=== PATIENT | male | born 1975 | race Caucasian/White ===

== ENCOUNTER 2018-04-20 09:36 | Emergency (ER) | payer OTHER ==
[2018-04-20] MEDS ORDERED: DEXAMETHASONE 10 MG/ML VIAL PO STA (09:55)
[2018-04-20] MEDS ORDERED: IPRATROPIUM/ALBUTEROL 3 ML NEB INH STA (09:55)
--- NOTE | 2018-04-20 09:58 | ED Physician Documentation ---
PD HPI CHEST PAIN - Stated complaint Stated Complaint: CHEST PAIN - Chief complaint Chief Complaint: General - History obtained from History obtained from: Patient - History of Present Illness Timing - onset: How many days ago (2) Timing - onset during: Rest Timing - duration: Days (2) Timing - details: Gradual onset, Still present Quality: Pressure, Aching, Sharp Location: Substernal, Left chest Improved by: Rest Worsened by: Inspiration, Movement, Palpation Associated symptoms: Shortness of air, Feeling faint / dizzy, General Weakness, Cough Similar symptoms before: Has not had sx before Recently seen: Not recently seen - Additional information Additional information: 43-year-old male with a prior history of asthma and otitis as a child has developed a cough and congestion and over the past 2 days he has developed substernal chest pain. He describes the pain as sharp stabbing and describes tenderness to his anterior chest. He states that it feels hard to get a full deep breath. There has been a smoke inversion over the past week which has now cleared. He has been producing phlegm and he has not looked at it. Review of Systems Constitutional: reports: Chills, Fatigue, Sweats. denies: Fever Eyes: denies: Decreased vision Ears: denies: Ear pain Nose: reports: Rhinorrhea / runny nose, Congestion Throat: denies: Sore throat Cardiac: reports: Chest pain / pressure. denies: Palpitations, Pedal edema, Calf pain Respiratory: reports: Dyspnea, Cough GI: denies: Abdominal Pain, Nausea, Vomiting : denies: Dysuria Skin: denies: Rash Musculoskeletal: denies: Neck pain, Back pain, Extremity pain Neurologic: denies: Generalized weakness, Focal weakness, Numbness PD PAST MEDICAL HISTORY - Past Medical History Past Medical History: Yes Cardiovascular: Hypertension Respiratory: None Endocrine/Autoimmune: None GI: None : None HEENT: None Psych: Depression, Anxiety, Panic attacks Musculoskeletal: Chronic back pain Derm: None - Past Surgical History Past Surgical History: Yes General: Appendectomy, Hiatal hernia repair - Present Medications Home Medications: Ambulatory Orders Medication Instructions Recorded Confirmed Lisinopril 20 mg PO DAILY 06/16/14 10/24/15 Metoprolol Tartrate 25 mg PO BID 07/10/14 10/24/15 ALPRAZolam [Xanax] 06/04/16 Albuterol Sulfate [Proair Hfa 2 puffs IH QID #1 hfa.aer.ad 06/04/16 Inhaler] Dexamethasone [Decadron] 4 mg PO DAILY #5 tablet 06/04/16 Ibuprofen [Motrin] 600 mg PO TID #15 tab 07/16/16 Albuterol Sulf [Ventolin Hfa 1 - 2 puffs INH Q4HR PRN #1 inhaler 04/20/18 Inhaler] Azithromycin [Zithromax] 250 mg PO DAILY #6 tablet 04/20/18 HYDROcod/ACETAM 5/325 [[place] 5/325] 1 - 2 ea PO Q6H PRN #15 tablet 04/20/18 Lisinopril 5 mg PO DAILY #20 tablet 04/20/18 predniSONE [Deltasone] 10 mg PO DAILY #26 tablet 04/20/18 - Allergies Allergies/Adverse Reactions: Allergies Allergy/AdvReac Type Severity Reaction Status Date / Time No Known Drug Allergies Allergy Verified 10/24/15 21:11 - Social History Does the pt smoke?: Yes Smoking Status: Current every day smoker Does the pt drink ETOH?: Yes Does the pt have substance abuse?: No - Immunizations Immunizations are current?: Yes - POLST Patient has POLST: No PD ED PE NORMAL - Vitals Vital signs reviewed: Yes - General General: Alert and oriented X 3, Well developed/nourished, Other (Ther patient is withdrawn and has a face of pain ) - HEENT HEENT: Atraumatic, PERRL, EOMI, Other (tympanoscelrosis is present bilaterally without acute inflamation noted. Dy mucous membranes ) - Neck Neck: Supple, no meningeal sign, No bony TTP - Cardiac Cardiac: No murmur, Other (tachy ) - Respiratory Respiratory: No respiratory distress, Other (Diminished breath sounds bilaterally with ? 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, No motor deficit, No sensory deficit, Normal speech Eye Opening: Spontaneous Motor: Obeys Commands Verbal: Oriented GCS Score: 15 - Psych Psych: Normal mood, Normal affect Results - Vitals Vitals: Vital Signs - 24 hr 04/20/18 04/20/18 04/20/18 09:41 09:55 10:52 Temperature 36.7 C Heart Rate 102 H 90 96 Respiratory 12 14 12 Rate Blood Pressure 172/105 H 165/96 H O2 Saturation 100 99 04/20/18 11:29 Temperature Heart Rate 91 Respiratory 18 Rate Blood Pressure 146/97 H O2 Saturation 99 Oxygen O2 Source Room air - EKG (time done) 0941 Rate: Rate (enter#) (106) Rhythm: Sinus tachycardia, LAE, ELLI Compare to prior EKG: Changed from prior EKG (SPT 06-04-18 rate has increased. ) Computer interpretation: Agree with computer - Labs Labs: Laboratory Tests 04/20/18 04/20/18 04/20/18 09:47 09:47 09:47 WBC 9.6 RBC 4.67 L Hgb 16.1 Hct 46.5 MCV 99.7 H MCH 34.5 H MCHC 34.6 RDW 13.6 Plt Count 203 MPV 8.5 Neut # (Auto) 5.7 Lymph # (Auto) 3.0 [place] # (Auto) 0.5 Eos # (Auto) 0.3 Baso # (Auto) 0.1 Absolute Nucleated RBC 0.00 Nucleated RBC % 0.0 Sodium 137 Potassium 3.8 Chloride 103 Carbon Dioxide 26 Anion Gap 8.0 BUN 21 H Creatinine 1.3 H Estimated GFR (MDRD) 60 L Glucose 191 H Calcium 9.4 Total Bilirubin 1.0 AST 22 ALT 17 Alkaline Phosphatase 75 Troponin I < 0.04 Total Protein 7.0 Albumin 4.2 Globulin 2.8 Albumin/Globulin Ratio 1.5 Lipase 38 - Rads (name of study) 2 veiw chest Radiology: Prelim report reviewed (Impression: No focal consolidation.), EMP read indepedently, See rad report PD MEDICAL DECISION MAKING - ED course Complexity details: reviewed old records, reviewed results, re-evaluated patient , considered differential, d/w patient, d/w family ED course: 43-year-old male with acute chest wall pain toward the end of the week with a week long smoke inversion. His chest x-ray is without evidence of infiltrate he is coughing up brown phlegm and he has some improvement in his pain with use of Toradol. He did not feel that he had much relief with the use of the DuoNeb treatment. The patient is asking for medication for his hypertension. He has been taking lisinopril 5 mg which he got from a doctor on his On his phone. - Sepsis Event Vital Signs: Vital Signs - 24 hr 04/20/18 04/20/18 04/20/18 09:41 09:55 10:52 Temperature 36.7 C Heart Rate 102 H 90 96 Respiratory 12 14 12 Rate Blood Pressure 172/105 H 165/96 H O2 Saturation 100 99 04/20/18 11:29 Temperature Heart Rate 91 Respiratory 18 Rate Blood Pressure 146/97 H O2 Saturation 99 Oxygen O2 Source Room air Departure - Departure Disposition: Home, Self Care Clinical Impression: Chest wall pain Asthmatic bronchitis Qualifiers: Asthma severity: mild Asthma persistence: intermittent Asthma complication type : with acute exacerbation Qualified Code(s): J45.21 - Mild intermittent asthma with (acute) exacerbation Hypertension Qualifiers: Hypertension type: unspecified Qualified Code(s): I10 - Essential (primary) hypertension Condition: Stable Instructions: ED Bronchitis Asthmatic, ED Chest Pain Costochondritis Follow-Up: [facility] [Provider Group] Prescriptions: Albuterol Sulf [Ventolin Hfa Inhaler] 1 - 2 puffs INH Q4HR PRN #1 inhaler PRN Reason: Shortness Of Air/Wheezing Azithromycin [Zithromax] 250 mg PO DAILY #6 tablet HYDROcod/ACETAM 5/325 [[place] 5/325] 1 - 2 ea PO Q6H PRN #15 tablet PRN Reason: Pain Lisinopril 5 mg PO DAILY #20 tablet predniSONE [Deltasone] 10 mg PO DAILY #26 tablet
[2018-04-20 10:00] LABS: BASOPHILS # (AUTO) 0.1 10^3/uL (0.0-0.1); BASOPHILS % (AUTO) 0.6 %; EOSINOPHILS # (AUTO) 0.3 10^3/uL (0.0-0.7); EOSINOPHILS % (AUTO) 3.4 %; HGB - HEMOGLOBIN 16.1 g/dL (14.0-18.0); LYMPHOCYTES % (AUTO) 31.5 %; MEAN CORPUSCULAR HEMOGLOBIN 34.5 pg (27.0-31.0); MEAN CORPUSCULAR HGB CONC 34.6 g/dL (32.0-36.0); MEAN CORPUSCULAR VOLUME 99.7 fL (80.0-94.0); MEAN PLATELET VOLUME 8.5 fL (7.4-11.4); MONOCYTES # (AUTO) 0.5 10^3/uL (0.0-1.0); MONOCYTES % (AUTO) 5.4 %; NEUTROPHILS # (AUTO) 5.7 10^3/uL (1.5-6.6); NEUTROPHILS % (AUTO) 59.1 %; PLT - PLATELET COUNT 203 10^3/uL (130-450); RED BLOOD COUNT 4.67 10^6/uL (4.70-6.10); RED CELL DISTRIBUTION WIDTH 13.6 % (12.0-15.0); WHITE BLOOD COUNT 9.6 x10^3/uL (4.8-10.8)
[2018-04-20 10:10] LABS: ALBUMIN 4.2 g/dL (3.2-5.5); ALBUMIN/GLOBULIN RATIO 1.5 (1.0-2.2); CALCIUM 9.4 mg/dL (8.5-10.3); CREATININE 1.3 mg/dL (0.6-1.2)
[2018-04-20] MEDS ORDERED: CHERRY SYRUP 10 ML UDC PO ONE (10:27)
--- NOTE | 2018-04-20 10:40 | XRAY Report ---
Reason: chest pain Procedure Date: 04/20/2018 Accession Number: [id number] / [id number] Procedure: XR - Chest 2 View X-Ray CPT Code: 97684 FULL RESULT: EXAM: CHEST RADIOGRAPHY EXAM DATE: 04/20/2018 10:06 AM. CLINICAL HISTORY: Chest radiograph dated 06/04/2016 COMPARISON: None. TECHNIQUE: 2 views. FINDINGS: Lungs/Pleura: No focal opacities evident. No pleural effusion. No pneumothorax. Normal volumes. Mediastinum: Heart and mediastinal contours are unremarkable. Other: None. IMPRESSION: No focal consolidation. RADIA
[2018-04-20] MEDS ORDERED: KETOROLAC 60 MG/2 ML VIAL IVP STA (11:19)
[2018-04-20 12:46] VITALS: BP 150/89
== END 2018-04-20 12:46 | disposition home or self-care (01) ==
LOC: ED 09:36
DX: J45.21 Mild intermittent asthma with (acute) exacerbation (principal); R07.89 Other chest pain; H74.03 Tympanosclerosis, bilateral; I10 Essential (primary) hypertension; F17.200 Nicotine dependence, unspecified, uncomplicated
CPT/HCPCS: 36415; 71046; 80053; 83690; 84484; 85025; 93005; 94640; 96374; 99283; 99284; A9270

== ENCOUNTER 2018-06-03 08:19 | Outpatient (CLI) | payer OTHER ==
[2018-06-03 12:23] LABS: ALBUMIN 3.9 g/dL (3.2-5.5); ALBUMIN/GLOBULIN RATIO 1.3 (1.0-2.2); ALKALINE PHOSPHATASE 86 IU/L (42-121); ALT ALANINE AMINOTRANSFERASE 21 IU/L (10-60); AST ASPARTATE AMINOTRANSFERASE 23 IU/L (10-42); BILIRUBIN,TOTAL 0.8 mg/dL (0.2-1.0); BUN - BLOOD UREA NITROGEN 14 mg/dL (6-20); CHOL/HDL RATIO 2.9 (<5.0); CHOLESTEROL 194 mg/dL; CREATININE 1.1 mg/dL (0.6-1.2); GFR - MDRD 73 (>89); HDL CHOLESTEROL 66 mg/dL; LDL CHOLESTEROL,CALCULATED 103 mg/dL; LDL/HDL RATIO 1.6 (<3.6); TOTAL PROTEIN 6.8 g/dL (6.7-8.2); VLDL CHOLESTEROL 25 mg/dL
[2018-06-03 12:52] LABS: CALCIUM 8.9 mg/dL (8.5-10.3); CARBON DIOXIDE - CO2 30 mmol/L (21-32); CHLORIDE 102 mmol/L (101-111); GLUCOSE 108 mg/dL (70-100); SODIUM 138 mmol/L (135-145)
== END 2018-06-03 08:20 | disposition home or self-care (01) ==
LOC: LAB.S 08:19
PROVIDERS: ATTEND Nurse Practitioner Family
DX: I10 Essential (primary) hypertension (principal); Z13.29 Encounter for screening for other suspected endocrine disorder
CPT/HCPCS: 36415; 80053; 80061; 83721; 84443

== ENCOUNTER 2018-11-08 19:12 | Emergency (ER) | payer OTHER ==
[2018-11-08 19:44] LABS: BASOPHILS % (AUTO) 0.3 %; EOSINOPHILS # (AUTO) 0.3 10^3/uL (0.0-0.7); EOSINOPHILS % (AUTO) 4.4 %; HGB - HEMOGLOBIN 16.2 g/dL (14.0-18.0); LYMPHOCYTES # (AUTO) 1.6 10^3/uL (1.5-3.5); LYMPHOCYTES % (AUTO) 24.8 %; MEAN CORPUSCULAR HEMOGLOBIN 33.6 pg (27.0-31.0); MEAN CORPUSCULAR HGB CONC 34.2 g/dL (32.0-36.0); MEAN CORPUSCULAR VOLUME 98.4 fL (80.0-94.0); MEAN PLATELET VOLUME 8.1 fL (7.4-11.4); MONOCYTES # (AUTO) 0.8 10^3/uL (0.0-1.0); MONOCYTES % (AUTO) 11.8 %; NEUTROPHILS # (AUTO) 3.8 10^3/uL (1.5-6.6); NEUTROPHILS % (AUTO) 58.7 %; PLT - PLATELET COUNT 193 10^3/uL (130-450); RED BLOOD COUNT 4.82 10^6/uL (4.70-6.10); RED CELL DISTRIBUTION WIDTH 13.8 % (12.0-15.0); WHITE BLOOD COUNT 6.6 x10^3/uL (4.8-10.8)
[2018-11-08 19:59] LABS: ALBUMIN 4.2 g/dL (3.2-5.5); ALBUMIN/GLOBULIN RATIO 1.4 (1.0-2.2); BILIRUBIN,TOTAL 0.5 mg/dL (0.2-1.0); CALCIUM 9.7 mg/dL (8.5-10.3); CREATININE 1.2 mg/dL (0.6-1.2); TOTAL PROTEIN 7.2 g/dL (6.7-8.2)
[2018-11-08] MEDS ORDERED: MAG HYDROX/AL HYDROX/SIMETH 30 ML UDC PO STA ×2 (21:47→22:24)
[2018-11-08] MEDS ORDERED: LIDOCAINE VISCOUS 2% 15 ML UDC MM STA ×2 (21:47→22:24)
[2018-11-08] MEDS ORDERED: SODIUM CHLORIDE 0.9% 1,000 ML IV ONE (21:48)
--- NOTE | 2018-11-08 21:52 | ED Physician Documentation ---
PD HPI ABD PAIN - Stated complaint Stated Complaint: AB PX/NAUSEA - Chief complaint Chief Complaint: Abd Pain - History obtained from History obtained from: Patient - History of Present Illness Timing - onset: Yesterday Timing - duration: Days (1) Timing - details: Gradual onset, Still present Quality: Cramping, Sharp, Pain Location: Epigastric, RLQ Improved by: Laying still Worsened by: Eating, Moving, Position, Palpation Associated symptoms: Nausea, Vomiting, Other (dark stool yesterday am BRBPR today) Similar symptoms before: Has not had sx before Recently seen: Not recently seen - Additional information Additional information: 43-year-old male with a prior history of reactive airway disease and gastritis has developed epigastric pain beginning yesterday afternoon and he developed vomiting in the evening. He did not look at the vomit does not know whether there is anything look like coffee grounds. He did have some bright red blood per rectum this morning and he has not had anything else out. He has had some dry heaves today. He has not been able to hold down fluids today. He does state that yesterday morning he had dark tarry stool. By review of the patient's record he has had similar presentation 2 years ago. He has had his appendix out. Review of Systems Constitutional: denies: Fever, Chills Eyes: denies: Decreased vision Ears: denies: Ear pain Nose: denies: Rhinorrhea / runny nose, Congestion Throat: denies: Sore throat Cardiac: denies: Chest pain / pressure, Palpitations Respiratory: denies: Dyspnea, Cough GI: reports: Abdominal Pain, Nausea, Vomiting, Bloody / black stool : reports: Dysuria. denies: Frequency Skin: denies: Rash Musculoskeletal: denies: Neck pain, Back pain, Extremity pain Neurologic: denies: Generalized weakness, Focal weakness, Numbness PD PAST MEDICAL HISTORY - Past Medical History Past Medical History: Yes Cardiovascular: Hypertension Respiratory: None Endocrine/Autoimmune: None GI: None : None HEENT: None Psych: Depression, Anxiety, Panic attacks Musculoskeletal: Chronic back pain Derm: None - Past Surgical History Past Surgical History: Yes General: Appendectomy, Hiatal hernia repair - Present Medications Home Medications: Ambulatory Orders Medication Instructions Recorded Confirmed Lisinopril 20 mg PO DAILY 06/16/14 10/24/15 Metoprolol Tartrate 25 mg PO BID 07/10/14 10/24/15 ALPRAZolam [Xanax] 06/04/16 Albuterol Sulfate [Proair Hfa 2 puffs IH QID #1 hfa.aer.ad 06/04/16 Inhaler] Dexamethasone [Decadron] 4 mg PO DAILY #5 tablet 06/04/16 Ibuprofen [Motrin] 600 mg PO TID #15 tab 07/16/16 Albuterol Sulf [Ventolin Hfa 1 - 2 puffs INH Q4HR PRN #1 inhaler 04/20/18 Inhaler] Azithromycin [Zithromax] 250 mg PO DAILY #6 tablet 04/20/18 HYDROcod/ACETAM 5/325 [[place] 5/325] 1 - 2 ea PO Q6H PRN #15 tablet 04/20/18 Lisinopril 5 mg PO DAILY #20 tablet 04/20/18 predniSONE [Deltasone] 10 mg PO DAILY #26 tablet 04/20/18 Sucralfate [Carafate] 1 gm PO ACHS #60 tablet 11/09/18 - Allergies Allergies/Adverse Reactions: Allergies Allergy/AdvReac Type Severity Reaction Status Date / Time No Known Drug Allergies Allergy Verified 11/08/18 19:19 - Social History Does the pt smoke?: Yes Smoking Status: Current every day smoker Does the pt drink ETOH?: Yes Does the pt have substance abuse?: No - Immunizations Immunizations are current?: Yes - POLST Patient has POLST: No PD ED PE NORMAL - Vitals Vital signs reviewed: Yes (tachy and hypertensive ) - General General: Alert and oriented X 3, Well developed/nourished, Other (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 No garding and no referred tenderness. ) - Rectal Rectal: Other (external hemmorrhoid does not appear inflamed. Stool is dark and guiac +. 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, No motor deficit, No sensory deficit, Normal speech Eye Opening: Spontaneous Motor: Obeys Commands Verbal: Oriented GCS Score: 15 - Psych Psych: Normal mood Results - Vitals Vitals: Vital Signs - 24 hr 11/08/18 11/08/18 11/08/18 19:17 20:30 22:12 Temperature 36.9 C 37.3 C Heart Rate 127 H 100 89 Respiratory 20 16 18 Rate Blood Pressure 165/96 H 128/79 125/76 O2 Saturation 99 97 100 11/09/18 00:00 Temperature Heart Rate 84 Respiratory 16 Rate Blood Pressure 118/70 O2 Saturation 98 Oxygen O2 Source Room air - Labs Labs: Laboratory Tests 11/08/18 11/08/18 11/08/18 19:31 19:31 22:05 WBC 6.6 RBC 4.82 Hgb 16.2 Hct 47.4 MCV 98.4 H MCH 33.6 H MCHC 34.2 RDW 13.8 Plt Count 193 MPV 8.1 Neut # (Auto) 3.8 Lymph # (Auto) 1.6 [place] # (Auto) 0.8 Eos # (Auto) 0.3 Baso # (Auto) 0.0 Absolute Nucleated RBC 0.00 Nucleated RBC % 0.0 Sodium 138 Potassium 3.6 Chloride 99 L Carbon Dioxide 27 Anion Gap 12.0 BUN 26 H Creatinine 1.2 Estimated GFR (MDRD) 66 L Glucose 115 H Calcium 9.7 Total Bilirubin 0.5 AST 24 ALT 20 Alkaline Phosphatase 80 Total Protein 7.2 Albumin 4.2 Globulin 3.0 Albumin/Globulin Ratio 1.4 Lipase 26 Urine Color YELLOW Urine Clarity CLEAR Urine pH 5.5 Ur Specific [place] >=1.030 H Urine Protein TRACE Urine Glucose (UA) NEGATIVE Urine Ketones NEGATIVE Urine Occult Blood NEGATIVE Urine Nitrite NEGATIVE Urine Bilirubin NEGATIVE Urine Urobilinogen 1 (NORMAL) Ur Leukocyte Esterase NEGATIVE Ur Microscopic Review NOT INDICATED Urine Culture Comments NOT INDICATED Urine Opiates Screen Ur Oxycodone Screen Urine Methadone Screen Ur Propoxyphene Screen Ur Barbiturates Screen Ur Tricyclics Screen Ur Phencyclidine Scrn Ur Amphetamine Screen U Methamphetamines Scrn U Benzodiazepines Scrn Urine Cocaine Screen U Cannabinoids Screen 11/08/18 23:59 WBC RBC Hgb Hct MCV MCH MCHC RDW Plt Count MPV Neut # (Auto) Lymph # (Auto) [place] # (Auto) Eos # (Auto) Baso # (Auto) Absolute Nucleated RBC Nucleated RBC % Sodium Potassium Chloride Carbon Dioxide Anion Gap BUN Creatinine Estimated GFR (MDRD) Glucose Calcium Total Bilirubin AST ALT Alkaline Phosphatase Total Protein Albumin Globulin Albumin/Globulin Ratio Lipase Urine Color Urine Clarity Urine pH Ur Specific [place] Urine Protein Urine Glucose (UA) Urine Ketones Urine Occult Blood Urine Nitrite Urine Bilirubin Urine Urobilinogen Ur Leukocyte Esterase Ur Microscopic Review Urine Culture Comments Urine Opiates Screen NEGATIVE Ur Oxycodone Screen NEGATIVE Urine Methadone Screen NEGATIVE Ur Propoxyphene Screen NEGATIVE Ur Barbiturates Screen NEGATIVE Ur Tricyclics Screen NEGATIVE Ur Phencyclidine Scrn NEGATIVE Ur Amphetamine Screen NEGATIVE U Methamphetamines Scrn NEGATIVE U Benzodiazepines Scrn NEGATIVE Urine Cocaine Screen NEGATIVE U Cannabinoids Screen NEGATIVE Procedures - IVC sono (time) 2144 Bedside IVC sono: IVC measures (cm) (1.09), Dehydration (est 1 liter deficit.) PD MEDICAL DECISION MAKING - ED course Complexity details: reviewed old records, reviewed results, re-evaluated patient, considered differential, d/w patient ED course: 43-year-old male with a history of prior gastritis has epigastric pain and blood in the GI tract he has normal blood counts and is dehydrated on interrogation of the inferior vena cava. 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 He has little effect of the GI cocktail and is given a second dose with more lidocaine and carafate and this has some temporary improvement. He requests medication for pain and is given IV tylenol. He is administered IV protonix as well. Departure - Departure Disposition: 01 Home, Self Care Clinical Impression: Gastritis Qualifiers: Gastritis type: unspecified gastritis Chronicity: acute Gastritis bleeding: with bleeding Qualified Code(s): K29.01 - Acute gastritis with bleeding Condition: Stable Instructions: ED PUD Vs Gastritis, ED Bleed UGI Stable Follow-Up: [facility] [Provider Group] Prescriptions: Sucralfate [Carafate] 1 gm PO ACHS #60 tablet Comments: Today it appears the abdominal pain you are having is related to gastritis or an inflammation of the stomach lining or ulcer. The recommendation is to take a medication to reduce the acid in your stomach on a regular basis for at least 2 weeks. Take either omeprazole or Pepcid AC available [id number], daily. In addition I have prescribed some Carafate which will need to take 1/2-hour before you eat and at bedtime on a regular basis for 10 days. This medicine will help heal. Avoid medications such as ibuprofen Aleve or aspirin and avoid alcohol as all of these medications can irritate the stomach lining.
[2018-11-08 22:20] LABS: BILIRUBIN,URINE NEGATIVE (NEGATIVE); GLUCOSE, URINE (UA) NEGATIVE (NEGATIVE); KETONES,URINE (UA) NEGATIVE (NEGATIVE); LEUKOCYTE ESTERASE, URINE NEGATIVE (NEGATIVE); NITRITE,URINE NEGATIVE (NEGATIVE); OCCULT BLOOD,URINE NEGATIVE (NEGATIVE); PH,URINE 5.5 PH (5.0-7.5); PROTEIN,URINE TRACE mg/dL (NEGATIVE); UROBILINOGEN,URINE 1 (NORMAL) E.U./dL (NORMAL)
[2018-11-08] MEDS ORDERED: SUCRALFATE 1 GM/10 ML UDC PO STA (22:24)
[2018-11-08 22:25] LABS: CLARITY,URINE CLEAR (CLEAR)
[2018-11-08] MEDS ORDERED: ACETAMINOPHEN 1,000 MG/100 ML 100 ML IV STA (23:31)
[2018-11-08] MEDS ORDERED: PANTOPRAZOLE 40 MG VIAL IVP STA (23:54)
[2018-11-09 00:02] LABS: MUDS CUTOFF CONCENTRATIONS CUTOFF CONC BELOW:
[2018-11-09 00:08] VITALS: BP 118/70
[2018-11-09 00:17] LABS: AMPHETAMINE SCREEN,URINE NEGATIVE (NEGATIVE); BENZODIAZEPINES SCREEN, URINE NEGATIVE (NEGATIVE); COCAINE SCREEN URINE NEGATIVE (NEGATIVE); METHADONE SCREEN, URINE NEGATIVE (NEGATIVE); METHAMPHETAMINES SCREEN, URINE NEGATIVE (NEGATIVE); OPIATE SCREEN, URINE NEGATIVE (NEGATIVE); OXYCODONE SCREEN, URINE NEGATIVE (NEGATIVE); PROPOXYPHENE SCREEN, URINE NEGATIVE (NEGATIVE); TRICYCLIC ANTIDEPRESSANT,URINE NEGATIVE (NEGATIVE)
== END 2018-11-09 00:45 | disposition home or self-care (01) ==
LOC: ED 19:12
DX: K29.01 Acute gastritis with bleeding (principal); E86.0 Dehydration; K64.4 Residual hemorrhoidal skin tags; I10 Essential (primary) hypertension; F17.200 Nicotine dependence, unspecified, uncomplicated
CPT/HCPCS: 36415; 80053; 80306; 81003; 83690; 85025; 96361; 96365; 96375; 99283; A9270; J0131; 81001; 87086

== ENCOUNTER 2019-10-07 13:12 | Emergency (ER) | payer OTHER ==
[2019-10-07 13:51] LABS: BASOPHILS % (AUTO) 0.5 %; EOSINOPHILS # (AUTO) 0.4 10^3/uL (0.0-0.7); HGB - HEMOGLOBIN 16.4 g/dL (14.0-18.0); LYMPHOCYTES # (AUTO) 3.5 10^3/uL (1.5-3.5); LYMPHOCYTES % (AUTO) 40.1 %; MEAN CORPUSCULAR HEMOGLOBIN 33.1 pg (27.0-31.0); MEAN CORPUSCULAR HGB CONC 33.3 g/dL (32.0-36.0); MEAN CORPUSCULAR VOLUME 99.4 fL (80.0-94.0); MEAN PLATELET VOLUME 9.7 fL (7.4-11.4); MONOCYTES # (AUTO) 0.6 10^3/uL (0.0-1.0); MONOCYTES % (AUTO) 6.8 %; NEUTROPHILS # (AUTO) 4.3 10^3/uL (1.5-6.6); NEUTROPHILS % (AUTO) 48.4 %; PLT - PLATELET COUNT 235 10^3/uL (130-450); RED BLOOD COUNT 4.95 10^6/uL (4.70-6.10); RED CELL DISTRIBUTION WIDTH 13.3 % (12.0-15.0); WHITE BLOOD COUNT 8.8 x10^3/uL (4.8-10.8)
[2019-10-07 14:05] LABS: ALBUMIN/GLOBULIN RATIO 1.5 (1.0-2.2); CREATININE 1.2 mg/dL (0.6-1.2); TOTAL PROTEIN 6.6 g/dL (6.7-8.2)
--- NOTE | 2019-10-07 17:02 | Ultrasound Report ---
Reason: R testicular pain Procedure Date: 10/07/2019 Accession Number: [id number] / [id number] Procedure: US - Testicle w/Doppler CPT Code: Final Report FULL RESULT: US: US SCROTUM WITH DOPPLER EXAM: SCROTAL ULTRASOUND WITH DOPPLER EXAM DATE: 10/07/2019 04:47 PM. CLINICAL HISTORY: Right testicular pain. COMPARISON: ABDOMEN/PELVIS W/ 10/24/2015 10:19 PM. TECHNIQUE: Real time sonographic grayscale and color/spectral Doppler images of the scrotum with static images were obtained. Spectral Doppler was used to completely evaluate the testicular vasculature for torsion. FINDINGS: Right: Testis: 4.6 x 2.2 x 2.9 cm. Normal size and echotexture. No mass. No calcification. Normal arterial and venous flow present. Epididymis: 1 x 1.3 x 2 cm. Increased vascularity at the right epididymal tail. Hydrocele: None. Varicocele: None. Left: Testis: 4.7 x 2.5 x 3 cm. Normal size and echotexture. No mass. No calcification. Normal arterial and venous flow present. Epididymis: 1 x 1.3 x 1.3 cm. Increased vascularity at the left epididymal tail. Hydrocele: None. Varicocele: None. IMPRESSION: No evidence for testicular torsion. Increased vascularity seen at the bilateral epididymal tails, could represent bilateral acute epididymitis versus this is normal for the patient. RADIA
[2019-10-07] MEDS ORDERED: KETOROLAC 30 MG/ML VIAL IVP STA (17:15)
[2019-10-07 17:30] LABS: BILIRUBIN,URINE NEGATIVE (NEGATIVE); GLUCOSE, URINE (UA) NEGATIVE (NEGATIVE); KETONES,URINE (UA) TRACE mg/dL (NEGATIVE); LEUKOCYTE ESTERASE, URINE NEGATIVE (NEGATIVE); NITRITE,URINE NEGATIVE (NEGATIVE); OCCULT BLOOD,URINE NEGATIVE (NEGATIVE); PROTEIN,URINE NEGATIVE (NEGATIVE); UROBILINOGEN,URINE 0.2 (NORMAL) E.U./dL (NORMAL)
[2019-10-07 17:31] LABS: CLARITY,URINE CLEAR (CLEAR)
[2019-10-07] MEDS ORDERED: ONDANSETRON 4 MG/2 ML VIAL IVP STA (18:15)
[2019-10-07] MEDS ORDERED: MORPHINE 2 MG/ML CARPUJECT IVP STA (18:15)
--- NOTE | 2019-10-07 18:18 | ED Physician Documentation ---
History of Present Illness - Stated complaint Stated Complaint: ABD PX - Chief complaint Chief Complaint: Abd Pain - History obtained from History obtained from: Patient - Additonal information Additional information: This is a 44-year-old man who presents with complaints that he thinks he has a hernia in the right groin it swollen tender and painful. His testicles are also swollen. He is had pain for 2 days. [place] some burning with urination yesterday but did not see any blood. He has not had a fever. He had a hernia repair in that right side with mesh about 15 years ago. He does feel pain radiate down the inner aspect of his right thigh whenever he is up and walking. Denies nausea vomiting or diarrhea. He has a little low back pain. The patient works in [employer] and does a lot of lifting. Review of Systems Constitutional: denies: Fever GI: reports: Abdominal Pain. denies: Nausea, Vomiting, Diarrhea : reports: Testicular pain. denies: Dysuria, Hematuria Skin: denies: Rash PD PAST MEDICAL HISTORY - Past Medical History Cardiovascular: Hypertension Respiratory: None Endocrine/Autoimmune: None GI: Ulcers : None HEENT: None Psych: Depression, Anxiety, Panic attacks Musculoskeletal: Chronic back pain Derm: None - Past Surgical History Past Surgical History: Yes General: Appendectomy, Hiatal hernia repair - Present Medications Home Medications: Ambulatory Orders Medication Instructions Recorded Confirmed lisinopriL [Lisinopril] 20 mg PO DAILY 06/16/14 10/24/15 Metoprolol Tartrate 25 mg PO BID 07/10/14 10/24/15 ALPRAZolam [Xanax] 06/04/16 Albuterol Sulfate [Proair Hfa 2 puffs IH QID #1 hfa.aer.ad 06/04/16 Inhaler] dexAMETHasone [Decadron] 4 mg PO DAILY #5 tablet 06/04/16 Ibuprofen [Motrin] 600 mg PO TID #15 tab 07/16/16 Albuterol Sulf [Ventolin Hfa 1 - 2 puffs INH Q4HR PRN #1 inhaler 04/20/18 Inhaler] Azithromycin [Zithromax] 250 mg PO DAILY #6 tablet 04/20/18 HYDROcod/ACETAM 5/325 [[place] 5/325] 1 - 2 ea PO Q6H PRN #15 tablet 04/20/18 lisinopriL [Lisinopril] 5 mg PO DAILY #20 tablet 04/20/18 predniSONE [Deltasone] 10 mg PO DAILY #26 tablet 04/20/18 Sucralfate [Carafate] 1 gm PO ACHS #60 tablet 11/09/18 Ciprofloxacin HCl [Cipro] 500 mg PO BID #20 tablet 10/07/19 - Allergies Allergies/Adverse Reactions: Allergies Allergy/AdvReac Type Severity Reaction Status Date / Time No Known Drug Allergies Allergy Verified 10/07/19 13:15 - Social History Does the pt smoke?: Yes Smoking Status: Current every day smoker Does the pt drink ETOH?: Yes Does the pt have substance abuse?: No - Immunizations Immunizations are current?: Yes - POLST Patient has POLST: No PD ED PE NORMAL - Vitals Vital signs reviewed: Yes - General General: Alert and oriented X 3, No acute distress, Well developed/nourished - HEENT HEENT: Atraumatic, Other (No scleral icterus) - Cardiac Cardiac: RRR, No murmur - Respiratory Respiratory: No respiratory distress - Abdomen Abdomen: Normal bowel sounds, Soft, Other (He has tenderness in the right inguinal region but no definite hernia. I do not feel any lymphadenopathy. He has a 2+ Femoral pulse.) - Male Male : Other (Testes are descended bilaterally. Right testicle feels a little boggy but the epididymis is tender. The left testicle feels firmer and is non- tender.) - Derm Derm: Normal color, Warm and dry, No rash - Neuro Neuro: Alert and oriented X 3, No motor deficit, No sensory deficit, Normal speech - Psych Psych: Normal mood, Normal affect Results - Vitals Vitals: Vital Signs - 24 hr 10/07/19 10/07/19 10/07/19 13:15 16:09 17:15 Temperature 36.5 C 37.1 C Heart Rate 100 87 87 Respiratory 16 18 16 Rate Blood Pressure 180/120 H 187/120 H 169/113 H O2 Saturation 98 99 100 10/07/19 10/07/19 18:21 19:02 Temperature Heart Rate 88 77 Respiratory 99 H 16 Rate Blood Pressure 150/92 H 152/109 H O2 Saturation 100 97 Oxygen O2 Source Room air - Labs Labs: Laboratory Tests 10/07/19 10/07/19 10/07/19 13:47 13:47 17:25 WBC 8.8 RBC 4.95 Hgb 16.4 Hct 49.2 MCV 99.4 H MCH 33.1 H MCHC 33.3 RDW 13.3 Plt Count 235 MPV 9.7 Neut # (Auto) 4.3 Lymph # (Auto) 3.5 [place] # (Auto) 0.6 Eos # (Auto) 0.4 Baso # (Auto) 0.0 Absolute Nucleated RBC 0.00 Nucleated RBC % 0.0 Sodium 136 Potassium 4.4 Chloride 99 L Carbon Dioxide 26 Anion Gap 11.0 BUN 10 Creatinine 1.2 Estimated GFR (MDRD) 65 L Glucose 85 Calcium 9.0 Total Bilirubin 1.0 AST 22 ALT 16 Alkaline Phosphatase 72 Total Protein 6.6 L Albumin 4.0 Globulin 2.6 Albumin/Globulin Ratio 1.5 Lipase 26 Urine Color YELLOW Urine Clarity CLEAR Urine pH 6.0 Ur Specific [place] <=1.005 Urine Protein NEGATIVE Urine Glucose (UA) NEGATIVE Urine Ketones TRACE Urine Occult Blood NEGATIVE Urine Nitrite NEGATIVE Urine Bilirubin NEGATIVE Urine Urobilinogen 0.2 (NORMAL) Ur Leukocyte Esterase NEGATIVE Ur Microscopic Review NOT INDICATED Urine Culture Comments NOT INDICATED PD MEDICAL DECISION MAKING - ED course Complexity details: reviewed results, d/w patient ED course: Patient had an IV started and he was given a liter of fluids and 30 of Toradol IV. White blood cell count is normal renal functions normal. Ultrasound of the right testicle did not reveal any evidence of torsion. The epididymitis on both sides was a little inflamed in the tail. Went back into reevaluate and the patient stated that he was still having 4-5 out of 10 pain. Still extremely tender in that groin region. After discussion with him can obtain a CT scan to rule out hernia or vascular pathology. Is also given morphine and Zofran for the pain. 191: CT still pending. Care turned over to DR Hoffman at shift change. Departure - Departure Clinical Impression: Acute epididymitis Prescriptions: Ciprofloxacin HCl [Cipro] 500 mg PO BID #20 tablet
[2019-10-07] MEDS ORDERED: IOVERSOL 320 100 ML VIAL IVP ONE ×2 (19:09→20:06)
--- NOTE | 2019-10-07 20:34 | CT Report ---
Reason: abd pain Procedure Date: 10/07/2019 Accession Number: [id number] / [id number] Procedure: CT - Abdomen/Pelvis W CPT Code: Final Report FULL RESULT: EXAM: CT ABDOMEN AND PELVIS EXAM DATE: 10/07/2019 07:58 PM. CLINICAL HISTORY: Abdominal pain. Right lower quadrant abdominal pain for 3 days. COMPARISONS: ABDOMEN/PELVIS W/ 10/24/2015 10:19 PM. TECHNIQUE: Routine helical CT imaging was performed through the abdomen and pelvis. IV contrast: 100 cc Optiray 320. Enteric contrast: No. Reconstructions: Coronal and sagittal. In accordance with CT protocol optimization, one or more of the following dose reduction techniques were utilized for this exam: automated exposure control, adjustment of mA and/or KV based on patient size, or use of iterative reconstructive technique. FINDINGS: Imaged chest: Unremarkable. Liver: The liver demonstrates a few scattered tiny subcentimeter low-density foci, technically too small to accurately characterize and indeterminant but statistically likely to represent tiny cysts. Gallbladder: Unremarkable. Biliary: Unremarkable. Pancreas: Unremarkable. Spleen: Unremarkable. Adrenal glands: Again calcified bilateral adrenal glands. Kidneys: No hydronephrosis or nephrolithiasis. The kidneys demonstrates a few scattered tiny subcentimeter low-density foci, technically too small to accurately characterize and indeterminant but statistically likely to represent tiny cysts. Urinary bladder: The urinary bladder is thick walled. Reproductive organs: Enlarged prostate. Bowel: Unremarkable. Stomach: Unremarkable. Appendix: Surgical clips adjacent to the cecum suggest appendectomy. No secondary signs of acute appendicitis. Miscellaneous: Trace nonspecific simple appearing free fluid in the pelvis, similar to prior. No extraluminal gas. Aorta: Mild aortic atherosclerosis. Normal in caliber. Lymph nodes: No pathologically enlarged lymph nodes identified. Bones: No acute fracture. No suspicious osseous lesions. Sidewalls: Soft tissue attenuation of the bilateral inguinal regions may be sequela of prior inguinal hernia repair. No evidence of recurrent hernia. Small fat-containing umbilical hernia. IMPRESSION: 1. Soft tissue attenuation in the bilateral inguinal regions may be sequela of prior inguinal hernia repair. No evidence of recurrent hernia. 2. Surgical clips adjacent to the cecum suggest appendectomy. No secondary signs of acute appendicitis. 3. Thickening of the urinary bladder wall which may be secondary to chronic bladder outlet obstruction as the prostate is enlarged, however, recommend correlation with urinalysis to exclude cystitis. 4. Trace nonspecific simple appearing free fluid in the pelvis, similar to prior. RADIA
[2019-10-07 21:42] VITALS: BP 163/113
== END 2019-10-07 21:41 | disposition home or self-care (01) ==
LOC: ED 13:12
DX: N45.1 Epididymitis (principal); I10 Essential (primary) hypertension; F17.200 Nicotine dependence, unspecified, uncomplicated
CPT/HCPCS: 36415; 74177; 76870; 80053; 81003; 83690; 85025; 93975; 96374; 96375; 99284; Q9967; 81001; 87086

== ENCOUNTER 2020-03-09 23:25 | Emergency (ER) | payer OTHER ==
--- NOTE | 2020-03-09 23:59 | ED Physician Documentation ---
History of Present Illness - Stated complaint Stated Complaint: L KNEE PX - Chief complaint Chief Complaint: Ext Problem - History obtained from History obtained from: Patient (The patient is a 44-year-old male presents with a chief complaint of Left knee pain. He denies any trauma or fevers or any history of PE or DVT reports that he has arthritis.He denies any history of IV drug abuse denies any swelling or history of gout) Review of Systems Constitutional: reports: Reviewed and negative Eyes: reports: Reviewed and negative Ears: reports: Reviewed and negative Nose: reports: Reviewed and negative Throat: reports: Reviewed and negative Cardiac: reports: Reviewed and negative Respiratory: reports: Reviewed and negative GI: reports: Reviewed and negative : reports: Reviewed and negative Skin: reports: Reviewed and negative Musculoskeletal: reports: Other (Left knee pain) Neurologic: reports: Reviewed and negative Psychiatric: reports: Reviewed and negative Endocrine: reports: Reviewed and negative Immunocompromised: reports: Reviewed and negative PD PAST MEDICAL HISTORY - Past Medical History Past Medical History: Yes Cardiovascular: Hypertension Respiratory: None Endocrine/Autoimmune: None GI: Ulcers : None HEENT: None Psych: Depression, Anxiety, Panic attacks Musculoskeletal: Chronic back pain Derm: None - Past Surgical History Past Surgical History: Yes General: Appendectomy, Hiatal hernia repair - Present Medications Home Medications: Ambulatory Orders Medication Instructions Recorded Confirmed No Known Home Medications 03/09/20 03/09/20 - Allergies Allergies/Adverse Reactions: Allergies Allergy/AdvReac Type Severity Reaction Status Date / Time No Known Drug Allergies Allergy Verified 03/09/20 23:29 - Social History Does the pt smoke?: Yes Smoking Status: Current every day smoker Does the pt drink ETOH?: Yes Does the pt have substance abuse?: No - Immunizations Immunizations are current?: Yes - POLST Patient has POLST: No PD ED PE NORMAL - Vitals Vital signs reviewed: Yes - General General: Alert and oriented X 3, No acute distress, Well developed/nourished - HEENT HEENT: Atraumatic, PERRL - Neck Neck: Supple, no meningeal sign - Cardiac Cardiac: RRR, No murmur - Respiratory Respiratory: Clear bilaterally - Abdomen Abdomen: Normal bowel sounds, Soft, Non tender, Non distended - Derm Derm: Normal color, Warm and dry, No rash - Extremities Extremities: No deformity, No tenderness to palpate, No calf tenderness / cord, Other (Left knee shows no obvious deformity or swelling there is no obvious joint effusion or ballottement there is no tenderness over the medial joint manuel e. He has a steady gait strength is 5 out of 5 sensations intact light touch compartments are soft neurovascular intact negative Debi's. ) - Neuro Neuro: Alert and oriented X 3 - Psych Psych: Normal mood, Normal affect Results - Vitals Vitals: Vital Signs - 24 hr 03/09/20 23:29 Temperature 36.5 C Heart Rate 96 Respiratory 16 Rate Blood Pressure 170/100 H O2 Saturation 97 Oxygen O2 Source Room air PD MEDICAL DECISION MAKING - ED course Complexity details: reviewed results, re-evaluated patient, considered differential (Arthritis), d/w patient Departure - Departure Disposition: 01 Home, Self Care Clinical Impression: Arthritis of knee, left Condition: Stable Instructions: Arthritis Follow-Up: [facility] [Provider Group] - 03/10/20 Comments: Establish care with a primary care provider. Use a compression knee brace. Ice. Take either ibuprofen or Aleve or Tylenol as needed.
[2020-03-10] MEDS ORDERED: IBUPROFEN 800 MG TABLET PO STA (01:28)
[2020-03-10 02:03] VITALS: BP 170/112
--- NOTE | 2020-03-10 08:57 | XRAY Report ---
PROCEDURE: Knee 3 View LT INDICATIONS: knee pain TECHNIQUE: 3 views of the left knee(s) were acquired. COMPARISON: Prior 4 views of the knee 07/16/2016 FINDINGS: Bones: No fractures or dislocations. No suspicious bony lesions. Soft tissues: No joint effusion. No suspicious soft tissue calcifications. IMPRESSION: No trauma found, no worsening degenerative changes identified from 2016. A small degree of joint space narrowing is again noted. Reviewed by: Reggie Joseph MD on 03/10/2020 8:56 AM PDT Approved by: Reggie Joseph MD on 03/10/2020 8:56 AM PDT Station ID: [id number]
== END 2020-03-10 01:55 | disposition home or self-care (01) ==
LOC: ED 23:25
DX: M17.12 Unilateral primary osteoarthritis, left knee (principal); M54.9 Dorsalgia, unspecified; G89.29 Other chronic pain; I10 Essential (primary) hypertension; F17.200 Nicotine dependence, unspecified, uncomplicated
CPT/HCPCS: 73562; 99283; A9270

== ENCOUNTER 2020-10-01 14:39 | Outpatient (CLI) | payer OTHER | END 2020-10-01 23:59 | disposition short-term general hospital (02) | LOC: EMS 14:39 | DX: R07.9 Chest pain, unspecified (principal) | CPT/HCPCS: A0425; A0427 ==

== ENCOUNTER 2021-03-07 08:00 | Outpatient (CLI) | payer OTHER | END 2021-03-07 23:59 | disposition home or self-care (01) | LOC: LAB.S 08:00 | PROVIDERS: ATTEND Physician Assistant | DX: L98.9 Disorder of the skin and subcutaneous tissue, unspecified (principal) | CPT/HCPCS: 87070; 87077; 87205 ==

== ENCOUNTER 2021-03-28 21:00 | Emergency (ER) | payer OTHER ==
[2021-03-28 21:32] VITALS: BP 169/96
[2021-03-28 21:58] LABS: BASOPHILS % (AUTO) 0.4 %; EOSINOPHILS % (AUTO) 3.9 %; HCT - HEMATOCRIT 52.9 % (42.0-52.0); HGB - HEMOGLOBIN 17.9 g/dL (14.0-18.0); LYMPHOCYTES % (AUTO) 57.4 %; MEAN CORPUSCULAR HEMOGLOBIN 34.1 pg (27.0-31.0); MEAN CORPUSCULAR HGB CONC 33.8 g/dL (32.0-36.0); MEAN CORPUSCULAR VOLUME 100.8 fL (80.0-94.0); MEAN PLATELET VOLUME 9.9 fL (7.4-11.4); MONOCYTES % (AUTO) 4.5 %; NEUTROPHILS % (AUTO) 33.6 %; PLT - PLATELET COUNT 242 10^3/uL (130-450); RED BLOOD COUNT 5.25 10^6/uL (4.70-6.10); RED CELL DISTRIBUTION WIDTH 13.5 % (12.0-15.0)
[2021-03-28 22:00] LABS: ABNORMAL LYMPHS % (MANUAL) 0 %; BAND NEUTROPHILS % (MANUAL) 0 %
[2021-03-28 22:14] LABS: ACETAMINOPHEN < 10 ug/mL (10-30); ALBUMIN 4.4 g/dL (3.2-5.5); ALBUMIN/GLOBULIN RATIO 1.6 (1.0-2.2); ALKALINE PHOSPHATASE 80 IU/L (42-121); ALT ALANINE AMINOTRANSFERASE 20 IU/L (10-60); AST ASPARTATE AMINOTRANSFERASE 27 IU/L (10-42); BILIRUBIN,TOTAL 0.7 mg/dL (0.2-1.0); BUN - BLOOD UREA NITROGEN 6 mg/dL (6-20); CALCIUM 8.8 mg/dL (8.5-10.3); CARBON DIOXIDE - CO2 27 mmol/L (21-32); CHLORIDE 105 mmol/L (101-111); ETOH - ETHANOL 253.1 mg/dL; GFR - MDRD 80 (>89); GLUCOSE 82 mg/dL (70-100); LIPASE 48 U/L (22-51); POTASSIUM 3.5 mmol/L (3.5-5.0); SALICYLATE < 6.0 mg/dL; SODIUM 142 mmol/L (135-145); TOTAL PROTEIN 7.2 g/dL (6.7-8.2)
[2021-03-28 22:24] LABS: EOSINOPHILS # (MANUAL) 0.2 10^3/uL (0-0.7); LYMPHOCYTES # (MANUAL) 7.2 10^3/uL (1.5-3.5); LYMPHOCYTES % (MANUAL) 45 %; NEUTROPHILS # (MANUAL) 3.6 10^3/uL (1.5-6.6); REACTIVE LYMPHS % (MANUAL) 20 %
[2021-03-28 22:28] LABS: DIFFERENTIAL COMMENT MANUAL DIFFERENTIAL; PLATELET ESTIMATE, MANUAL NORMAL (130-450,000) (NORMAL); PLATELET MORPHOLOGY NORMAL APPEARANCE (NORMAL); WBC MORPHOLOGY (MULTIPLE) 1+ SMUDGE CELLS (NORMAL)
== END 2021-03-28 22:00 | disposition left against medical advice (07) ==
LOC: ED 21:00
DX: Z53.21 Procedure and treatment not carried out due to patient leaving prior to being seen by health care provider (principal)
CPT/HCPCS: 36415; 80053; 80307; 80320; 80329; 83690; 84443; 85025

== ENCOUNTER 2021-09-30 14:17 | Emergency (ER) | payer OTHER ==
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
[2021-09-30 16:31] VITALS: BP 192/120
== END 2021-09-30 16:31 | disposition home or self-care (01) ==
LOC: ED 14:17
DX: S00.83XA Contusion of other part of head, initial encounter (principal); S06.0X0A Concussion without loss of consciousness, initial encounter; S16.1XXA Strain of muscle, fascia and tendon at neck level, initial encounter; Y04.8XXA Assault by other bodily force, initial encounter; I10 Essential (primary) hypertension; F17.200 Nicotine dependence, unspecified, uncomplicated
CPT/HCPCS: 99282; 99284

== ENCOUNTER 2022-09-19 23:57 | Emergency (ER) | payer MEDICAID, OTHER ==
[2022-09-20 00:17] LABS: BASOPHILS % (AUTO) 0.5 %; EOSINOPHILS % (AUTO) 3.4 %; HCT - HEMATOCRIT 52.7 % (42.0-52.0); HGB - HEMOGLOBIN 17.7 g/dL (14.0-18.0); MEAN CORPUSCULAR HEMOGLOBIN 33.8 pg (27.0-31.0); MEAN CORPUSCULAR HGB CONC 33.6 g/dL (32.0-36.0); MEAN CORPUSCULAR VOLUME 100.6 fL (80.0-94.0); MEAN PLATELET VOLUME 10.6 fL (7.4-11.4); MONOCYTES % (AUTO) 7.6 %; NEUTROPHILS % (AUTO) 37.3 %; PLT - PLATELET COUNT 241 10^3/uL (130-450); RED BLOOD COUNT 5.24 10^6/uL (4.70-6.10); RED CELL DISTRIBUTION WIDTH 13.4 % (12.0-15.0); WHITE BLOOD COUNT 11.2 x10^3/uL (4.8-10.8)
--- NOTE | 2022-09-20 00:19 | ED Physician Documentation ---
History of Present Illness - Stated complaint Stated Complaint: SOA, BACK/SHOULDER PX - Chief complaint Chief Complaint: Cardiac - History obtained from History obtained from: Patient - Additonal information Additional information: 47-year-old male presenting with chest pain over the past 24 hours starting at rest sudden onset at midnight last night, worse today, radiating to the left shoulder. Patient has history of hypertension but is noncompliant with medications. Daily smoker. +FH PR in twin sister. Patient states he quit drinking alcohol 5 days ago . had been drinking 5-7 servings of whiskey daily prior to that. denies fever, hemoptysis, travel, leg swelling or pain. Review of Systems Constitutional: denies: Fever Cardiac: reports: Chest pain / pressure. denies: Palpitations Respiratory: reports: Dyspnea. denies: Cough PD PAST MEDICAL HISTORY - Past Medical History Cardiovascular: Hypertension Respiratory: None Endocrine/Autoimmune: None GI: Ulcers : None HEENT: None Psych: Depression, Anxiety, Panic attacks Musculoskeletal: Chronic back pain Derm: None - Past Surgical History Past Surgical History: Yes General: Appendectomy, Hiatal hernia repair - Present Medications Home Medications: Ambulatory Orders Medication Instructions Recorded Confirmed Amlodipine Besylate [Norvasc] 10 mg PO DAILY 03/28/21 03/28/21 Metoprolol Succinate [Toprol Xl] 50 mg PO BID 03/28/21 03/28/21 Lisinopril [Zestril] 10 mg PO DAILY #30 tablet 09/30/21 Metoprolol Succinate [Toprol Xl] 25 mg PO BID #60 tablet 09/30/21 - Allergies Allergies/Adverse Reactions: Allergies Allergy/AdvReac Type Severity Reaction Status Date / Time No Known Drug Allergies Allergy Verified 09/20/22 00:00 - Social History Does the pt smoke?: Yes Smoking Status: Current every day smoker Does the pt drink ETOH?: Yes Does the pt have substance abuse?: No - Immunizations Immunizations are current?: Yes - POLST Patient has POLST: No PD ED PE NORMAL - Vitals Vital signs reviewed: Yes - General General: Alert and oriented X 3, No acute distress, Well developed/nourished - HEENT HEENT: Atraumatic, PERRL, EOMI - Neck Neck: Supple, no meningeal sign - Cardiac Cardiac: RRR - Respiratory Respiratory: No respiratory distress, Clear bilaterally Results - Vitals Vitals: Vital Signs - 24 hr 09/20/22 09/20/22 09/20/22 00:00 00:21 01:45 Temperature 36.5 C Heart Rate 90 83 74 Respiratory 16 19 13 Rate Blood Pressure 200/120 H 188/111 H 148/105 H O2 Saturation 100 100 99 Oxygen O2 Source Room air - EKG (time done) 0012 Rate: Rate (enter#) (91) Rhythm: NSR [place]: Normal Intervals: Normal SC QRS: Normal Ischemia: Normal ST segments Compare to prior EKG: Unchanged from prior EKG (04/20/18) Computer interpretation: Disagree with computer (no ILENE consistent with ischemic changes) - Labs Labs: Laboratory Tests 09/20/22 09/20/22 09/20/22 00:11 00:11 00:11 WBC 11.2 H RBC 5.24 Hgb 17.7 Hct 52.7 H MCV 100.6 H MCH 33.8 H MCHC 33.6 RDW 13.4 Plt Count 241 MPV 10.6 Neut # (Auto) Not Reportable Lymph # (Auto) Not Reportable [place] # (Auto) Not Reportable Eos # (Auto) Not Reportable Baso # (Auto) Not Reportable Absolute Nucleated RBC Not Reportable Total Counted 100 Band Neuts % (Manual) 0 Abnorm Lymph % (Manual) 0 Nucleated RBC % Not Reportable Neutrophils # (Manual) 3.2 Lymphocytes # (Manual) 7.2 H Monocytes # (Manual) 0.3 Eosinophils # (Manual) 0.4 Basophils # (Manual) 0.0 Differential Comment MANUAL DIFFERENTIAL WBC Morphology NORMAL APPEARANCE Platelet Estimate NORMAL (130-450,000) Platelet Morphology NORMAL APPEARANCE RBC Morph Micro Appear NORMAL APPEARANCE Sodium 142 Potassium 3.8 Chloride 105 Carbon Dioxide 29 Anion Gap 8.0 BUN 10 Creatinine 1.1 Estimated GFR (MDRD) 71 L Glucose 79 Calcium 9.4 Total Bilirubin 0.7 AST 18 ALT 18 Alkaline Phosphatase 76 Troponin I High Sens 3.5 Total Protein 7.1 Albumin 4.1 Globulin 3.0 Albumin/Globulin Ratio 1.4 Lipase 42 PD Medical Decision Making - ED course ED course: 47yM p/w epigastric pain and midsternal CP radiating to shoulder, reproducible with palpation and movement of shoulder. HEART score 3 (low risk MACE 0.9-1.7%). unlikely PE given perc negative.doubt aortic dissection therefore CTA and d- dimer unnecessary at this time. CBC, abdominal panel and troponin ordered and uncovered only a mild leukocytosis. CXR interpreted by myself as no evidence of cardiopulmonary disease. outside radiologist provided independent interpretation (see charting). EKG without acute ischemic changes. d/w patient and recommended starting antihypertensive medication but he declined, citing expense. provided referral to pcp and cardiology. return precautions given. Departure - Departure Disposition: Home, Self Care Clinical Impression: Chest pain Condition: Stable Instructions: ED Chest Pain Atypical Unkn Cause Follow-Up: Scarlett Alegre ARNP [Credentialed Staff Provider] - JODY CHANEL DO [Physician No Access] - Comments: You are seen in the emergency department for chest pain. Lab work, EKG, and chest x-ray uncovered no emergent cause for your symptoms. Please follow-up with the primary care provider for referral to cardiology (referral enclosed). Return to the emergency department for new or worsening symptoms or other concerns.
[2022-09-20 00:21] LABS: ABNORMAL LYMPHS % (MANUAL) 0 %; BAND NEUTROPHILS % (MANUAL) 0 %
[2022-09-20] MEDS ORDERED: FAMOTIDINE 20 MG TABLET PO STA (00:27)
[2022-09-20] MEDS ORDERED: KETOROLAC 15 MG/ML VIAL IVP STA (00:27)
[2022-09-20 00:32] LABS: ALBUMIN 4.1 g/dL (3.2-5.5); ALBUMIN/GLOBULIN RATIO 1.4 (1.0-2.2); BILIRUBIN,TOTAL 0.7 mg/dL (0.2-1.0); CALCIUM 9.4 mg/dL (8.5-10.3); CREATININE 1.1 mg/dL (0.6-1.2); POTASSIUM 3.8 mmol/L (3.5-5.0); TOTAL PROTEIN 7.1 g/dL (6.7-8.2)
[2022-09-20 00:50] LABS: DIFFERENTIAL COMMENT MANUAL DIFFERENTIAL; EOSINOPHILS # (MANUAL) 0.4 10^3/uL (0-0.7); LYMPHOCYTES # (MANUAL) 7.2 10^3/uL (1.5-3.5); LYMPHOCYTES % (MANUAL) 64 %; MONOCYTES # (MANUAL) 0.3 10^3/uL (0.0-1.0); NEUTROPHILS # (MANUAL) 3.2 10^3/uL (1.5-6.6); PLATELET ESTIMATE, MANUAL NORMAL (130-450,000) (NORMAL); PLATELET MORPHOLOGY NORMAL APPEARANCE (NORMAL); RBC MORPHOLOGY (MULTIPLE) NORMAL APPEARANCE (NORMAL); WBC MORPHOLOGY (MULTIPLE) NORMAL APPEARANCE (NORMAL)
[2022-09-20] MEDS ORDERED: diphenhydrAMINE ELIXIR 25 MG/10 ML UDC PO STA (01:10)
[2022-09-20] MEDS ORDERED: MAG HYDROX/AL HYDROX/SIMETH 30 ML UDC PO STA (01:10)
[2022-09-20] MEDS ORDERED: LIDOCAINE VISCOUS 2% 15 ML ORAL SYRINGE MM STA (01:10)
[2022-09-20] MEDS ORDERED: PANTOPRAZOLE 40 MG VIAL IVP STA (01:45)
--- NOTE | 2022-09-20 01:56 | XRAY Report ---
PROCEDURE: Chest 1 View X-Ray INDICATIONS: Chest pain TECHNIQUE: One view of the chest was acquired. COMPARISON: Chest x-ray 04/20/2018. FINDINGS: Surgical changes and devices: None. Lungs and pleura: No pleural effusions or pneumothorax. Lungs are clear. Mediastinum: Mediastinal contours appear normal. Heart size is normal. Bones and chest wall: No suspicious bony lesions. Overlying soft tissues appear unremarkable. IMPRESSION: 1. No acute cardiopulmonary disease. Reviewed by: Augusto Romero MD on 09/20/2022 1:54 AM PST Approved by: Augusto Romero MD on 09/20/2022 1:54 AM [facility] Station ID: [id number]
[2022-09-20 02:00] VITALS: BP 166/104
== END 2022-09-20 02:05 | disposition home or self-care (01) ==
LOC: ED 23:57
DX: R07.9 Chest pain, unspecified (principal); Z91.14 Patient's other noncompliance with medication regimen; F17.200 Nicotine dependence, unspecified, uncomplicated
CPT/HCPCS: 36415; 71045; 80053; 83690; 84484; 85025; 93005; 96374; 96375; 99283; 99284; A9270

== ENCOUNTER 2022-11-23 08:00 | Outpatient (CLI) | payer MEDICAID | END 2022-11-23 23:59 | disposition short-term general hospital (02) | LOC: EMS 08:00 | DX: R07.89 Other chest pain (principal); R06.02 Shortness of breath | CPT/HCPCS: A0425; A0427; A0999 ==

== ENCOUNTER 2022-11-25 18:03 | Emergency (ER) | payer MEDICAID ==
--- NOTE | 2022-11-25 18:20 | ED Physician Documentation ---
PD HPI ABD PAIN - Stated complaint Stated Complaint: ABD PX - Chief complaint Chief Complaint: Abd Pain - Additional information Additional information: 47-year-old male with a past medical history of alcohol use presents with midepigastric pain. He states that a few days ago he was seen at [place] [facility] and was diagnosed with pancreatitis via lab evaluation, no CT scan. He has been adhering to clear liquids so can really only tolerate water, and has been taking antinausea medication without relief in his symptoms. He has not been taking any pain medication. Patient is 11 weeks sober, and has had no history of pancreatitis in the past. He has had gastric ulcers in the past which caused him to stop drinking alcohol and he is doing well with his sobriety. He denies any fever, chills, chest pain or difficulty breathing, vomiting, diarrhea, constipation, urinary symptoms. Review of Systems Constitutional: reports: Reviewed and negative Cardiac: reports: Reviewed and negative Respiratory: reports: Reviewed and negative GI: reports: Abdominal Pain, Nausea. denies: Abdominal Swelling, Vomiting, Constipation, Diarrhea, Hematemesis, Bloody / black stool : reports: Reviewed and negative Skin: reports: Reviewed and negative Musculoskeletal: reports: Reviewed and negative Neurologic: reports: Reviewed and negative Psychiatric: reports: Reviewed and negative Endocrine: reports: Reviewed and negative PD PAST MEDICAL HISTORY - Past Medical History Past Medical History: Yes Cardiovascular: Hypertension Respiratory: None Endocrine/Autoimmune: None GI: Ulcers, Pancreatitis : None HEENT: None Psych: Depression, Anxiety, Panic attacks Musculoskeletal: Chronic back pain Derm: None - Past Surgical History Past Surgical History: Yes General: Appendectomy, Hiatal hernia repair - Present Medications Home Medications: Ambulatory Orders Medication Instructions Recorded Confirmed Amlodipine Besylate [Norvasc] 10 mg PO DAILY 03/28/21 03/28/21 Metoprolol Succinate [Toprol Xl] 50 mg PO BID 03/28/21 03/28/21 Lisinopril [Zestril] 10 mg PO DAILY #30 tablet 09/30/21 Metoprolol Succinate [Toprol Xl] 25 mg PO BID #60 tablet 09/30/21 Famotidine [Acid-Pep] 20 mg PO BID #30 tablet 11/25/22 Omeprazole 40 mg PO DAILY #30 cap 11/25/22 Ondansetron Odt [Zofran Odt] 4 mg TL Q6H PRN #10 tablet 11/25/22 - Allergies Allergies/Adverse Reactions: Allergies Allergy/AdvReac Type Severity Reaction Status Date / Time No Known Drug Allergies Allergy Verified 11/25/22 18:09 - Social History Does the pt smoke?: Yes Smoking Status: Current every day smoker Does the pt drink ETOH?: Yes Does the pt have substance abuse?: No - Immunizations Immunizations are current?: Yes - POLST Patient has POLST: No PD ED PE NORMAL - Vitals Vital signs reviewed: Yes - General General: Alert and oriented X 3, No acute distress, Well developed/nourished - HEENT HEENT: Atraumatic, Pharynx benign - Neck Neck: Supple, no meningeal sign, No JVD - Cardiac Cardiac: RRR, No murmur - Respiratory Respiratory: No respiratory distress, Clear bilaterally - Abdomen Abdomen: Normal bowel sounds, Soft, Non distended, Other (Tender midepigastric and left upper abdominal pain with mild guarding) Results - Vitals Vitals: Vital Signs - 24 hr 11/25/22 11/25/22 11/25/22 18:07 18:09 20:09 Temperature 36.6 C 36.6 C 36.5 C Heart Rate 101 H 101 H 77 Respiratory 16 16 16 Rate Blood Pressure 164/116 H 164/116 H 146/103 H O2 Saturation 98 98 99 Oxygen O2 Source Room air - Labs Labs: Laboratory Tests 11/25/22 11/25/22 11/25/22 18:24 18:24 18:24 WBC 11.5 H RBC 5.56 Hgb 18.2 H Hct 53.7 H MCV 96.6 H MCH 32.7 H MCHC 33.9 RDW 12.2 Plt Count 280 MPV 10.6 Neut # (Auto) 6.3 Lymph # (Auto) 4.2 H [place] # (Auto) 0.7 Eos # (Auto) 0.3 Baso # (Auto) 0.1 Absolute Nucleated RBC 0.00 Nucleated RBC % 0.0 Sodium 138 Potassium 4.2 Chloride 103 Carbon Dioxide 28 Anion Gap 7.0 BUN 11 Creatinine 1.3 H Estimated GFR (MDRD) 59 L Glucose 128 H Calcium 9.4 Total Bilirubin 0.8 AST 16 ALT 15 Alkaline Phosphatase 86 Total Protein 7.6 Albumin 4.3 Globulin 3.3 Albumin/Globulin Ratio 1.3 Lipase 47 Urine Color YELLOW Urine Clarity CLEAR Urine pH 5.5 Ur Specific [place] 1.015 Urine Protein NEGATIVE Urine Glucose (UA) NEGATIVE Urine Ketones NEGATIVE Urine Occult Blood NEGATIVE Urine Nitrite NEGATIVE Urine Bilirubin NEGATIVE Urine Urobilinogen 0.2 (NORMAL) Ur Leukocyte Esterase NEGATIVE Ur Microscopic Review NOT INDICATED Urine Culture Comments NOT INDICATED - Rads (name of study) No standard instances Relevant Findings:: Final report received PD Medical Decision Making - ED course Complexity details: reviewed old records, reviewed results, re-evaluated patient, considered differential, d/w patient ED course: 47-year-old male presented with epigastric pain over the last several days. He was reportedly seen at [place] for similar symptoms and told he had pancreatitis. He has been adhering to a clear liquid diet without improvement in his symptoms. Here, the patient appears uncomfortable, he has tenderness with epigastric palpation, his physical exam is otherwise stable. Differentials considered included PUD, gastritis, pancreatitis, gallstones or cholecystitis. We obtained CBC and CMP which are largely stable, his lipase is normal. He has a mildly elevated white blood cell count 11.5 no other acute findings. He was given Zofran, Toradol, IV fluids with some improvement in his symptoms. Of also given famotidine. I did proceed with the CT scan given he was still having significant epigastric pain that was reproducible on exam. CT scan shows no acute findings, no explanation for his symptoms. I suspect therefore that this is likely a gastritis, and I started him on famotidine as well as omeprazole and recommended he avoid any NSAIDs, alcohol, spicy foods or other irritants. Recommended he continue clear liquid diet and advance as tolerated. I discussed return precautions if new or worsening symptoms. He has ongoing symptoms, consider following up with PCP and consider outpatient referral for EGD. Departure - Departure Disposition: 01 Home, Self Care Clinical Impression: Gastritis Condition: Good Instructions: ED PUD Vs Gastritis Prescriptions: Famotidine [Acid-Pep] 20 mg PO BID #30 tablet Omeprazole 40 mg PO DAILY #30 cap Ondansetron Odt [Zofran Odt] 4 mg TL Q6H PRN #10 tablet PRN Reason: Nausea / Vomiting Comments: You presented with upper abdominal pain. Your exam here today is reassuring, your labs are stable and your CT scan does not show any pancreatitis today. I suspect you actually have gastritis which is irritation in the upper part of the stomach and this can be due to particular foods, alcohol, and anti- inflammatories. Please avoid alcohol, spicy foods and anti-inflammatories like ibuprofen or naproxen. I have started you on some medication to help with your symptoms. If you have new or worsening symptoms, please return to the ER.
[2022-11-25 18:32] LABS: BILIRUBIN,URINE NEGATIVE (NEGATIVE); GLUCOSE, URINE (UA) NEGATIVE (NEGATIVE); KETONES,URINE (UA) NEGATIVE (NEGATIVE); LEUKOCYTE ESTERASE, URINE NEGATIVE (NEGATIVE); NITRITE,URINE NEGATIVE (NEGATIVE); OCCULT BLOOD,URINE NEGATIVE (NEGATIVE); PH,URINE 5.5 PH (5.0-7.5); PROTEIN,URINE NEGATIVE (NEGATIVE); UROBILINOGEN,URINE 0.2 (NORMAL) E.U./dL (NORMAL)
[2022-11-25 18:34] LABS: CLARITY,URINE CLEAR (CLEAR)
[2022-11-25] MEDS ORDERED: SODIUM CHLORIDE 0.9% 1,000 ML IV STA (18:38)
[2022-11-25] MEDS ORDERED: KETOROLAC 30 MG/ML VIAL IVP STA (18:38)
[2022-11-25] MEDS ORDERED: ONDANSETRON 4 MG/2 ML VIAL IVP STA (18:38)
[2022-11-25] MEDS ORDERED: MORPHINE 2 MG/ML CARPUJECT IVP STA (18:39)
[2022-11-25 18:41] LABS: BASOPHILS # (AUTO) 0.1 10^3/uL (0.0-0.1); BASOPHILS % (AUTO) 0.4 %; EOSINOPHILS # (AUTO) 0.3 10^3/uL (0.0-0.7); EOSINOPHILS % (AUTO) 2.5 %; HCT - HEMATOCRIT 53.7 % (42.0-52.0); HGB - HEMOGLOBIN 18.2 g/dL (14.0-18.0); LYMPHOCYTES # (AUTO) 4.2 10^3/uL (1.5-3.5); LYMPHOCYTES % (AUTO) 36.3 %; MEAN CORPUSCULAR HEMOGLOBIN 32.7 pg (27.0-31.0); MEAN CORPUSCULAR HGB CONC 33.9 g/dL (32.0-36.0); MEAN CORPUSCULAR VOLUME 96.6 fL (80.0-94.0); MEAN PLATELET VOLUME 10.6 fL (7.4-11.4); MONOCYTES # (AUTO) 0.7 10^3/uL (0.0-1.0); MONOCYTES % (AUTO) 5.9 %; NEUTROPHILS # (AUTO) 6.3 10^3/uL (1.5-6.6); NEUTROPHILS % (AUTO) 54.7 %; PLT - PLATELET COUNT 280 10^3/uL (130-450); RED BLOOD COUNT 5.56 10^6/uL (4.70-6.10); RED CELL DISTRIBUTION WIDTH 12.2 % (12.0-15.0); WHITE BLOOD COUNT 11.5 x10^3/uL (4.8-10.8)
[2022-11-25 18:43] LABS: ALBUMIN 4.3 g/dL (3.2-5.5); ALBUMIN/GLOBULIN RATIO 1.3 (1.0-2.2); BILIRUBIN,TOTAL 0.8 mg/dL (0.2-1.0); CALCIUM 9.4 mg/dL (8.5-10.3); CREATININE 1.3 mg/dL (0.6-1.2); POTASSIUM 4.2 mmol/L (3.5-5.0); TOTAL PROTEIN 7.6 g/dL (6.7-8.2)
--- OUTSIDE RECORDS SUMMARY | 2022-11-25 19:15 | EXTERNAL MEDICAL SUMMARY RPT | Continuity of Care Document ---
:1975 Author Organization [facility] Address [address] [place] [address] Phone Care Team Providers Name Role Phone Unavailable Unavailable Unavailable Sahara Hurtado, Jose Unavailable Unavailable Jean Pierre Rn, Bsn, Gladys Unavailable Unavailable Allergies No information. Encounters No information. Functional Status No information. Immunizations No information. 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 [facility] [place] 2022-11-23 00:00 ST segment elevation [facility] [place] 2022-11-23 00:00 ST segment elevation [facility] [place] 2022-11-23 00:00 Unspecified chest pain [facility] [place] 2022-11-23 00:00 Unspecified chest pain [facility] [place] 2022-11-23 00:00 Nonspecific abnormal [facility] electrocardiogram [ECG] [EKG] & [facility] [place] 2022-11-23 00:00 Nonspecific abnormal [facility] electrocardiogram [ECG] [EKG] [facility] [place] 2022-11-23 00:00 Other disorders of peripheral [facility] nervous system [facility] [place] 2022-11-23 00:00 Other disorders of nervous system [facility] [place] 2022-11-23 00:00 [facility] [place] [facility]-23 00:00 Other [facility] [place] 2022-11-23 00:00 Abnormal electrocardiogram [ECG] [facility] [EKG] [facility] [place] 2022-11-23 00:00 Abnormal electrocardiogram [ECG] [facility] [EKG[facility] [place] 2022-11-23 00:00 Alcoholism in family [facility] Care [facility] [place] 2022-11-23 00:00 Family history of alcohol abuse and [facility] Primary Care dependence [facility] [place] 2022-11-24 00:00 Family history of alcoholism [facility] [place] 2022-11-24 00:00 Other inflammatory and toxic [facility] Primary Care neuropathy & [facility] [place] 2022-11-24 00:00 Other disorders of peripheral [facility] Primary Care nervous system & [facility] [place] 2022-11-24 00:00 Other disorders of nervous system [facility] [place] 2022-11-24 00:00 Alcoholism in family [facility] [place] 2022-11-24 00:00 Family history of alcohol abuse and [facility] Primary Care dependence [facility] [place] 2022-11-25 00:00 Family history of alcoholism [facility] Primary Care & [facility] [place] 2022-11-25 00:00 Other inflammatory and toxic [facility] Primary Care neuropathy & [facility] [place] 2022-11-25 00:00 Other disorders of peripheral [facility] Primary Care nervous system & [facility] [place] 2022-11-25 00:00 Other disorders of nervous system [facility] [place] 2022-11-25 00:00 Alcoholism in family [facility] Care [facility] [place] 2022-11-25 00:00 Family history of alcohol abuse and [facility] Primary Care dependence & [facility] [place] Procedures date description facility 2022-11-23 00:00 Visit Code Hold [facility] [place] 2022-11-23 00:00 Visit Code Hold [facility] [place] 2022-11-23 00:00 EKG Office Complete [facility] Care & Ancillary Services [place] 2022-11-23 00:00 EKG Office Complete [facility] [place] Results/Labs No information. Social History date description facility 2022-11-23 00:00 Current every day smoker [facility] [place] 2022-11-23 00:00 Current every day smoker [facility] [place] Vital Signs date measurement value units 2022-11-23 00:00 BMI 21.71 kg/m2 2022-11-23 00:00 BP_diastolic 125 mmHg 2022-11-23 00:00 BP_systolic 216 mmHg 2022-11-23 00:00 heart_rate 78 /min 2022-11-23 00:00 height_metric 167.64 cm 2022-11-23 00:00 height_standard 66 in 2022-11-23 00:00 respiration_rate 18 /min 2022-11-23 00:00 temperature_metric 36.11 C 2022-11-23 00:00 temperature_standard 97 F 2022-11-23 00:00 weight_metric 60.78 kg 2022-11-23 00:00 weight_standard 134 lb
[2022-11-25] MEDS ORDERED: iohexoL-300 100 ML VIAL ONE (19:17)
[2022-11-25] MEDS ORDERED: iohexoL-300 100 ML VIAL IVP ONE (19:50)
--- NOTE | 2022-11-25 20:15 | CT Report ---
PROCEDURE: ABDOMEN/PELVIS W INDICATIONS: epigastric pain CONTRAST: : Intravenous 100 ML OMNI 300 No oral contrast TECHNIQUE: After the administration of nonionic contrast, 5 mm thick sections acquired from the diaphragms to th e symphysis. 5 mm thick coronal and sagittal reformats were acquired. For radiation dose reduction, the following was used: automated exposure control, adjustment of mA and/or kV according to patient size. COMPARISON: CT abdomen/pelvis 10/07/2019 FINDINGS: Image quality: Excellent. Lung bases and heart: Unremarkable. Liver: Unremarkable. Gallbladder and biliary tree: Normal. Spleen: Unremarkable. Pancreas: Unremarkable. Adrenals: Bilateral adrenal calcifications. Kidneys and ureters: Unremarkable. Bowel and peritoneum: No bowel distension. No pathologic free fluid. Lymph nodes: No central or retroperitoneal adenopathy. Vessels: Unremarkable. PELVIS Reproductive organs: Unremarkable. Bladder: Unremarkable. Lymph nodes: Unremarkable. Bones: No aggressive osseous abnormality. Other: A normal or abnormal appendix could not be located but no secondary CT evidence of acute appen dicitis is present. IMPRESSION: No acute disease, source of reported epigastric pain is not identified. A normal or abnormal appendix could not be located within the right lower quadrant but no secondary CT evidence of acute appendici tis is present. Incidental note is made of chronic appearing mild bilateral adrenal calcifications. Reviewed by: Reggie Joseph MD on 11/25/2022 8:14 PM PDT Approved by: Reggie Joseph MD on 11/25/2022 8:14 PM PDT Station ID: [id number]
[2022-11-25 20:48] VITALS: BP 158/94
== END 2022-11-25 20:48 | disposition home or self-care (01) ==
LOC: ED 18:03
DX: K29.70 Gastritis, unspecified, without bleeding (principal); F17.200 Nicotine dependence, unspecified, uncomplicated
CPT/HCPCS: 36415; 74177; 80053; 81003; 83690; 85025; 96374; 96375; 99284; Q9967; 81001; 87086

== ENCOUNTER 2022-11-29 12:01 | Outpatient (CLI) | payer MEDICAID ==
[2022-11-29 14:24] LABS: BASOPHILS % (AUTO) 0.4 %; EOSINOPHILS # (AUTO) 0.3 10^3/uL (0.0-0.7); HCT - HEMATOCRIT 55.4 % (42.0-52.0); HGB - HEMOGLOBIN 18.5 g/dL (14.0-18.0); LYMPHOCYTES % (AUTO) 35.4 %; MEAN CORPUSCULAR HEMOGLOBIN 32.7 pg (27.0-31.0); MEAN CORPUSCULAR HGB CONC 33.4 g/dL (32.0-36.0); MEAN CORPUSCULAR VOLUME 98.1 fL (80.0-94.0); MEAN PLATELET VOLUME 11.3 fL (7.4-11.4); MONOCYTES # (AUTO) 0.7 10^3/uL (0.0-1.0); MONOCYTES % (AUTO) 6.2 %; NEUTROPHILS # (AUTO) 6.2 10^3/uL (1.5-6.6); NEUTROPHILS % (AUTO) 54.8 %; PLT - PLATELET COUNT 285 10^3/uL (130-450); RED BLOOD COUNT 5.65 10^6/uL (4.70-6.10); RED CELL DISTRIBUTION WIDTH 12.2 % (12.0-15.0); WHITE BLOOD COUNT 11.3 x10^3/uL (4.8-10.8)
[2022-11-29 14:38] LABS: ALBUMIN 4.5 g/dL (3.2-5.5); ALBUMIN/GLOBULIN RATIO 1.4 (1.0-2.2); BILIRUBIN,TOTAL 0.9 mg/dL (0.2-1.0); CALCIUM 9.6 mg/dL (8.5-10.3); CREATININE 1.1 mg/dL (0.6-1.2); POTASSIUM 4.9 mmol/L (3.5-5.0); TOTAL PROTEIN 7.7 g/dL (6.7-8.2)
== END 2022-11-29 12:02 | disposition home or self-care (01) ==
LOC: LAB.S 12:01
PROVIDERS: ATTEND Nurse Practitioner
DX: R10.9 Unspecified abdominal pain (principal); Z87.19 Personal history of other diseases of the digestive system
CPT/HCPCS: 36415; 80053; 85025

== ENCOUNTER 2022-12-02 13:59 | Outpatient (CLI) | payer MEDICAID | END 2022-12-02 14:00 | disposition critical access hospital (66) | LOC: EMS 13:59 | DX: R10.11 Right upper quadrant pain (principal); R10.12 Left upper quadrant pain; R10.31 Right lower quadrant pain; R11.0 Nausea | CPT/HCPCS: A0425; A0429; A0999 ==

== ENCOUNTER 2022-12-02 14:33 | Emergency (ER) | payer MEDICAID ==
--- OUTSIDE RECORDS SUMMARY | 2022-12-02 15:06 | EXTERNAL MEDICAL SUMMARY RPT | Continuity of Care Document ---
:1975 Author Organization [facility] Address [address] [place] [address] Phone Care Team Providers Name Role Phone [...] 2022-11-23 00:00 Other chest pain [facility] [place] 2022-11-23 00:00 Other chest pain [facility] [place] 2022-11-23 00:00 Abnormal electrocardiogram [ECG] [facility] Care [EKG] [facility] [place] 2022-11-23 00:00 Abnormal electrocardiogram [ECG] [facility] [EKG] [facility] [place] 2022-11-23 00:00 Alcoholism in family [facility] [place] 2022-11-23 00:00 Family history of alcohol abuse and [facility] Primary Care dependence [facility] [place] 2022-11-24 00:00 Family history of alcoholism [facility] Primary Care [facility] [place] 2022-11-24 00:00 Other inflammatory and toxic [facility] Primary Care neuropathy & Ancillary Services [place] 2022-11-24 00:00 Other disorders of peripheral [facility] Primary Care nervous system & [facility] [place] 2022-11-24 00:00 Other disorders of nervous system [facility] [place] 2022-11-24 00:00 Alcoholism in family [facility] [place] 2022-11-24 00:00 Family history of alcohol abuse and [facility] Primary Care dependence [facility] [place] 2022-11-25 00:00 Family history of alcoholism [facility] Primary Care [facility] [place] 2022-11-25 00:00 Other inflammatory and toxic [facility] Primary Care neuropathy & Ancillary Services [place] 2022-11-25 00:00 Other disorders of peripheral [facility] Primary Care nervous system & [facility] [place] 2022-11-25 00:00 Other disorders of nervous system [facility] [place] 2022-11-25 00:00 Alcoholism in family [facility] [place] 2022-11-25 00:00 Family history of alcohol abuse and [facility] Primary Care dependence & [facility] Services [place] Procedures date description facility 2022-11-23 00:00 Visit Code Hold [facility] Care & [facility] [place] 2022-11-23 00:00 Visit Code Hold [facility] [place] 2022-11-23 00:00 EKG Office Complete [facility] Care & Ancillary Services [place] 2022-11-23 00:00 EKG Office Complete [facility] Services [place] Results/Labs No information. Social History date description facility 2022-11-23 00:00 Current every day smoker [facility] [place] [facility] 2022-11-23 00:00 Current every day smoker [facility] [place] [facility] Vital Signs date measurement value units 2022-11-23 [...]
[2022-12-02 15:08] LABS: BASOPHILS # (AUTO) 0.1 10^3/uL (0.0-0.1); BASOPHILS % (AUTO) 0.6 %; EOSINOPHILS # (AUTO) 0.2 10^3/uL (0.0-0.7); EOSINOPHILS % (AUTO) 2.4 %; HCT - HEMATOCRIT 52.5 % (42.0-52.0); HGB - HEMOGLOBIN 17.6 g/dL (14.0-18.0); LYMPHOCYTES % (AUTO) 49.3 %; MEAN CORPUSCULAR HEMOGLOBIN 32.4 pg (27.0-31.0); MEAN CORPUSCULAR HGB CONC 33.5 g/dL (32.0-36.0); MEAN CORPUSCULAR VOLUME 96.5 fL (80.0-94.0); MEAN PLATELET VOLUME 10.5 fL (7.4-11.4); MONOCYTES # (AUTO) 0.4 10^3/uL (0.0-1.0); MONOCYTES % (AUTO) 5.4 %; NEUTROPHILS # (AUTO) 3.5 10^3/uL (1.5-6.6); NEUTROPHILS % (AUTO) 42.2 %; PLT - PLATELET COUNT 250 10^3/uL (130-450); RED BLOOD COUNT 5.44 10^6/uL (4.70-6.10); RED CELL DISTRIBUTION WIDTH 12.1 % (12.0-15.0); WHITE BLOOD COUNT 8.2 x10^3/uL (4.8-10.8)
[2022-12-02 15:23] LABS: ALBUMIN 4.1 g/dL (3.2-5.5); ALBUMIN/GLOBULIN RATIO 1.4 (1.0-2.2); BILIRUBIN,TOTAL 0.8 mg/dL (0.2-1.0); CALCIUM 9.1 mg/dL (8.5-10.3); CREATININE 1.2 mg/dL (0.6-1.2); POTASSIUM 4.8 mmol/L (3.5-5.0); TOTAL PROTEIN 7.1 g/dL (6.7-8.2)
[2022-12-02] MEDS ORDERED: LIDOCAINE VISCOUS 2% 15 ML UDC MM STA (15:25)
--- NOTE | 2022-12-02 15:25 | ED Physician Documentation ---
History of Present Illness - Stated complaint Stated Complaint: ABD PAIN - Chief complaint Chief Complaint: Abd Pain - Additonal information Additional information: 47-year-old male was referred to the emergency department from the [facility]in [facility] for evaluation of mid epigastric abdominal pain. The patient is 3 months sober from alcohol abuse. He reports that he was seen in late October at [facility] and diagnosed with pancreatitis via labs. Did not obtain a CT scan. The patient was subsequently seen in this emergency department on 25 November. At that time a CT scan was unremarkable. The patient is taking daily Protonix and 4 times daily sucralfate. Despite this he has a constant burning epigastric pain. He is scheduled to see a surgeon on Sunday for preoperative evaluation for likely EGD. No melena or hematochezia. No vomiting. No hematic emesis. No fevers. Patient adamantly denies any alcohol use. He is a daily tobacco user. Review of Systems Constitutional: denies: Fever, Chills GI: reports: Abdominal Pain. denies: Nausea, Vomiting, Hematemesis, Bloody / black stool : reports: Reviewed and negative Skin: reports: Reviewed and negative Musculoskeletal: reports: Reviewed and negative PD PAST MEDICAL HISTORY - Past Medical History Past Medical History: Yes Cardiovascular: Hypertension Respiratory: None Endocrine/Autoimmune: None GI: Ulcers, Pancreatitis : None HEENT: None Psych: Depression, Anxiety, Panic attacks Musculoskeletal: Chronic back pain Derm: None - Past Surgical History Past Surgical History: Yes General: Appendectomy, Hiatal hernia repair - Present Medications Home Medications: Ambulatory Orders Medication Instructions Recorded Confirmed Amlodipine Besylate [Norvasc] 10 mg PO DAILY 03/28/21 03/28/21 Metoprolol Succinate [Toprol Xl] 50 mg PO BID 03/28/21 03/28/21 Lisinopril [Zestril] 10 mg PO DAILY #30 tablet 09/30/21 Metoprolol Succinate [Toprol Xl] 25 mg PO BID #60 tablet 09/30/21 Famotidine [Acid-Pep] 20 mg PO BID #30 tablet 11/25/22 Omeprazole 40 mg PO DAILY #30 cap 11/25/22 Ondansetron Odt [Zofran Odt] 4 mg TL Q6H PRN #10 tablet 11/25/22 - Allergies Allergies/Adverse Reactions: Allergies Allergy/AdvReac Type Severity Reaction Status Date / Time No Known Drug Allergies Allergy Verified 12/02/22 14:41 - Social History Does the pt smoke?: Yes Smoking Status: Current every day smoker Does the pt drink ETOH?: Yes Does the pt have substance abuse?: No - Immunizations Immunizations are current?: Yes - POLST Patient has POLST: No PD ED PE NORMAL - General General: Alert and oriented X 3, No acute distress, Well developed/nourished - HEENT HEENT: Atraumatic, Moist mucous membranes - Neck Neck: Supple, no meningeal sign, No adenopathy - Cardiac Cardiac: RRR, No murmur - Respiratory Respiratory: No respiratory distress, Clear bilaterally - Abdomen Abdomen: Normal bowel sounds, Soft, Non tender (Focally tender in the midepigastrium. No guarding or rebound. No tenderness elicited in the lower abdomen.) - Derm Derm: Normal color, Warm and dry, No rash - Extremities Extremities: No deformity - Neuro Neuro: Alert and oriented X 3, No motor deficit Eye Opening: Spontaneous Motor: Obeys Commands Verbal: Oriented GCS Score: 15 Results - Vitals Vitals: Vital Signs - 24 hr 12/02/22 14:37 Temperature 36.8 C Heart Rate 84 Respiratory 20 Rate Blood Pressure 170/117 H O2 Saturation 100 Oxygen O2 Source Room air - Labs Labs: Laboratory Tests 12/02/22 12/02/22 15:03 15:03 WBC 8.2 RBC 5.44 Hgb 17.6 Hct 52.5 H MCV 96.5 H MCH 32.4 H MCHC 33.5 RDW 12.1 Plt Count 250 MPV 10.5 Neut # (Auto) 3.5 Lymph # (Auto) 4.0 H [place] # (Auto) 0.4 Eos # (Auto) 0.2 Baso # (Auto) 0.1 Absolute Nucleated RBC 0.00 Nucleated RBC % 0.0 Sodium 137 Potassium 4.8 Chloride 101 Carbon Dioxide 30 Anion Gap 6.0 BUN 14 Creatinine 1.2 Estimated GFR (MDRD) 65 L Glucose 90 Calcium 9.1 Total Bilirubin 0.8 AST 13 ALT 16 Alkaline Phosphatase 82 Total Protein 7.1 Albumin 4.1 Globulin 3.0 Albumin/Globulin Ratio 1.4 Lipase 47 PD Medical Decision Making - ED course Complexity details: reviewed results, re-evaluated patient, considered caroline murphy/cale patient ED course: 47-year-old male who has a history of alcohol abuse but is 3 months sober presents to the emergency department on the advice of walk-in clinic for evaluation of worsening epigastric pain. He is scheduled to see Dr. Allen in an outpatient preop appointment this upcoming Sunday. Patient states he is taking Protonix twice daily as well as Carafate without resolution of symptoms. No melena or hematochezia. He has very little appetite due to the abdominal pain. Patient reports she was seen at [facility] in late October diagnosed with panc reatitis by labs. Seen again here in this ER on 25 November. At that time laboratory findings were not consistent with pancreatitis and a CT scan of the abdomen was unremarkable. Today in the emergency department his abdominal exam is nonperitoneal. He does have most of the tenderness focused within the epigastrium. I have no suspicion for a gastric perforation based on my exam today. Patient denies melena or hematochezia. He has no worrisome anemia. His lower doubt for occult GI bleed. Given unremarkable CT imaging recently as well as benign labs today I will defer advanced imagingI did give him a single dose of lidocaine which he did not find helpful. He is abstaining from any narcotic use. I suspect that he is taking the Protonix with the Carafate and I have advised against this. We also discussed a bland diet which may be helpful. He is discharged home in stable condition with usual emergent return precautions discussed Departure - Departure Disposition: 01 Home, Self Care Clinical Impression: Epigastric abdominal pain Condition: Stable Record reviewed to determine appropriate education?: Yes Comments: Andrea chan labs today in the ER did not show any worrisome findings. The CT scan completed of your abdomen on 25 November did not show anything to suggest a pancreatitis. You most likely have gastritis which is inflammation of the stomach. Stop smoking. Please continue to take the Protonix twice daily. Make sure that you are not taking the sucralfate within an hour of taking the Protonix as it will block its absorption. Avoid spicy foods, orange juice and tomato juice. You can take Tylenol 500 mg 4 times a day for abdominal discomfort. Try eating plain foods such as bananas, rice, applesauce and toast. You can also try taking [id number] medications such as Tums which some people find very helpful in the treatment of gastritis. Return to the ER for suddenly severe or different abdominal pain, any bloody vomit or fainting episodes
[2022-12-02 16:47] VITALS: BP 135/98
== END 2022-12-02 16:55 | disposition home or self-care (01) ==
LOC: EDUNIT# → ED 14:33
DX: R10.13 Epigastric pain (principal); Z72.0 Tobacco use; I10 Essential (primary) hypertension
CPT/HCPCS: 36415; 80053; 83690; 85025; 99283

== ENCOUNTER 2022-12-08 13:19 | Day surgery (SDC) | payer MEDICAID ==
[2022-12-08] MEDS ORDERED: LACTATED RINGERS 1,000 ML IV ONE ×2 (13:28→15:32)
[2022-12-08] MEDS ORDERED: PROPOFOL 500 MG/50 ML 500 MG/50 ML VIAL ONE (13:58)
--- NOTE | 2022-12-08 14:00 | ANESTHESIA ---
Pre-Anesthesia VS, & Labs - Diagnosis epigastric pain, screening - Procedure EGD, colonoscopy Vital Signs: Temp Pulse Resp BP Pulse Ox O2 Flow Rate 36.4 C L 102 H 24 163/101 H 95 0 12/08/22 13:37 12/08/22 13:37 12/08/22 13:37 12/08/22 13:37 12/08/22 13:37 12/08/22 13:37 Height: 5 ft 5 in Weight (kg): 58.06 kg Body Mass Index: 21.2 BMI Classification: Normal - NPO Other (prep as directed) Home Medications and Allergies Allergies/Adverse Reactions: Allergies Allergy/AdvReac Type Severity Reaction Status Date / Time No Known Drug Allergies Allergy Verified 12/02/22 14:41 Anes History & Medical History - Anesthetic History Anesthesia Complications: reports: No previous complications - Medical History Cardiovascular: reports: Hypertension Pulmonary: reports: None Gastrointestinal: reports: Ulcers, Pancreatitis Urinary: reports: None Musculoskeletal: reports: Chronic back pain Endocrine/Autoimmune: reports: None Blood Disorders: reports: None Skin: reports: None Smoking Status: Current every day smoker - Surgical History General: reports: Appendectomy, Hiatal hernia repair Exam General: Alert, Oriented x3 Dental: WNL (edentulous on top) Mallampati classification: I Respiratory: Lungs clear Cardiovascular: Regular rate Plan Anesthesia Type: Total IV Consent for Procedure(s) Verified and Reviewed: Yes Code Status: Attempt Resuscitation ASA classification: 2-Mild systemic disease Is this case an emergency?: No
[2022-12-08] MEDS ORDERED: LIDOCAINE-MPF 2% 5 ML VIAL ONE (14:34)
[2022-12-08] MEDS ORDERED: LIDOCAINE MPF 2%-EPI 1:200000 20 ML VIAL ONE (14:58)
[2022-12-08] MEDS ORDERED: ePHEDrine 50 MG/ML VIAL IVP ONE (15:00)
[2022-12-08] MEDS ORDERED: PROPOFOL 200 MG/20 ML VIAL IVP ONE (15:03)
[2022-12-08] MEDS ORDERED: LIDOCAINE 2%-EPI 1:100000 20 ML MDV SUBQ ONE (15:23)
--- NOTE | 2022-12-08 15:46 | ANESTHESIA POST OP EVALUATION ---
Anesthesia Post Eval - Post Anesthesia Eval Vitals: Last Vital Signs Temp 36.2 C L 12/08/22 15:30 Pulse 95 12/08/22 15:30 Resp 16 12/08/22 15:30 BP 93/42 L 12/08/22 15:30 Pulse Ox 100 12/08/22 15:30 O2 Flow Rate 0 12/08/22 13:37 CV Function Including HR & BP: Stable Pain Control: Satisfactory Nausea & Vomiting: Negative Mental Status: Baseline Respiratory Status: Airway Patent Hydration Status: Satisfactory Anesthesia Complications: None
[2022-12-08 16:00] VITALS: BP 121/70
== END 2022-12-08 13:20 | disposition home or self-care (01) ==
LOC: SDS 13:19
PROVIDERS: ATTEND Surgery
PROC: 0DB78ZX Excision of Stomach, Pylorus, Via Natural or Artificial Opening Endoscopic, Diagnostic (ICD-10-PCS; 2022-12-08)
PROC: 0DB58ZX Excision of Esophagus, Via Natural or Artificial Opening Endoscopic, Diagnostic (ICD-10-PCS; 2022-12-08)
PROC: 0DBQXZX Excision of Anus, External Approach, Diagnostic (ICD-10-PCS; principal; 2022-12-08 14:15)
PROC: 0DJD8ZZ Inspection of Lower Intestinal Tract, Via Natural or Artificial Opening Endoscopic (ICD-10-PCS; 2022-12-08 14:15)
PROC: 0DB98ZX Excision of Duodenum, Via Natural or Artificial Opening Endoscopic, Diagnostic (ICD-10-PCS; 2022-12-08 14:15)
DX: Z12.11 Encounter for screening for malignant neoplasm of colon (principal); R10.13 Epigastric pain; K64.4 Residual hemorrhoidal skin tags; K29.50 Unspecified chronic gastritis without bleeding; F17.200 Nicotine dependence, unspecified, uncomplicated; I10 Essential (primary) hypertension
CPT/HCPCS: 43239; 45378; 46220; J7120

== ENCOUNTER 2023-01-26 12:58 | Emergency (ER) | payer MEDICAID ==
--- OUTSIDE RECORDS SUMMARY | 2023-01-26 13:14 | EXTERNAL MEDICAL SUMMARY RPT | Continuity of Care Document ---
Author Name Unknown Address [address] [place] [address] Phone Organization [facility] Address [address] [place] [address] Phone Care Team Providers Care Keg Header Name Role Phone Unavailable Unavailable Unavailable Sahara Hurtado, Jose Unavailable Unavailable Jean Pierre Rn, Bsn, Gladys Unavailable Unavai lable Medications date description facility 2022-11-23 00:00 [facility] [place] 2022-11-23 00:00 [facility] [place] Problems date description facility 2022-11-23 00:00 Family history of alcoholism [facility] [place] 2022-11-23 00:00 Left sided chest pain [facility] [place] 2022-11-23 00:00 Left sided chest pain [facility] [place] 2022-11-23 00:00 Other inflammatory a nd toxic neuropathy [facility] [place] 2022-11-23 00:00 ST segment elevation [facility] [place] 2022-11-23 00:00 ST segment elevation [facility] [place] 2022-11-23 00:00 Unspecified chest pain [facility] [place] 2022-11-23 00:00 Unspecified chest pain [facility] [place] 2022-11-23 00:00 Nonspecific abnormal electrocardiogram [ECG] [EKG] [facility] [place] 2022-11-23 00:00 Nonspecific abnormal electrocardiogram [ECG] [EKG] [facility] [place] 2022-11-23 00:00 Other disorders of p eripheral nervous system [facility] [place] 2022-11-23 00:00 Other disorders of nervous syst em [facility] [place] 2022-11-23 00:00 Other chest pain [facility] [place] 2022-11-23 00:00 Other chest pain [facility] [place] 2022-11-23 00:00 Abnormal electrocardiogram [ECG ] [EKG] [facility] [place] 2022-11-23 00:00 Abnormal electrocardiogram [ECG ] [EKG] [facility] [place] 2022-11-23 00:00 Alcoholism in family [facility] [place] 2022-11-23 00:00 Family history of al cohol abuse and dependence [facility] [place] 2022-11-24 00:00 Family history of alcoholism [facility] [place] 2022-11-24 00:00 Other inflammatory a nd toxic neuropathy [facility] [place] 2022-11-24 00:00 Other disorders of p eripheral nervous system [facility] [place] 2022-11-24 00:00 Other disorders of nervous syst em [facility] [place] 2022-11-24 00:00 Alcoholism in family [facility] [place] 2022-11-24 00:00 Family history of al cohol abuse and dependence [facility] [place] 2022-11-25 00:00 Family history of alcoholism [facility] [place] 2022-11-25 00:00 Other inflammatory a nd toxic neuropathy [facility] [place] 2022-11-25 00:00 Other disorders of p eripheral nervous system [facility] [place] 2022-11-25 00:00 Other disorders of nervous syst em [facility] [place] 2022-11-25 00:00 Alcoholism in family [facility] [place] 2022-11-25 00:00 Family history of al cohol abuse and dependence [facility] [place] Procedures date description facility 2022-11-23 00:00 Visit Code Hold [facility] [place] 2022-11-23 00:00 Visit Code Hold [facility] [place] 2022-11-23 00:00 EKG Office Complete [facility] [place] 2022-11-23 00:00 EKG Office Complete [facility] [place] Social History date description facility 2022-11-23 00:00 Current every day smoker [facility] [place] 2022-11-23 00:00 Current every day smoker [facility] [place] Vital Signs date measurement value units 2022-11-23 [...]
--- NOTE | 2023-01-26 13:17 | ED Physician Documentation ---
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 There was a peeping or object there that struck to the left side of the neck.) Similar symptoms before: Has not had sx before Review of Systems Eyes: denies: Loss of vision, Decreased vision Skin: denies: Abrasion (s), Laceration (s) Neurologic: denies: Focal weakness, Numbness PD PAST MEDICAL HISTORY - Past Medical History Cardiovascular: Hypertension Respiratory: None Endocrine/Autoimmune: None GI: Ulcers, Pancreatitis : None HEENT: None Psych: Depression, Anxiety, Panic attacks Musculoskeletal: Chronic back pain Derm: None - Past Surgical History Past Surgical History: Yes General: Appendectomy, Hiatal hernia repair - Present Medications Home Medications: Ambulatory Orders Medication Instructions Recorded Confirmed Lisinopril [Zestril] 10 mg PO DAILY #30 tablet 09/30/21 12/07/22 Omeprazole 40 mg PO DAILY #30 cap 11/25/22 12/07/22 methocarbamoL [Robaxin] 500 mg PO Q6H PRN #30 tablet 01/26/23 - Allergies Allergies/Adverse Reactions: Allergies Allergy/AdvReac Type Severity Reaction Status Date / Time No Known Drug Allergies Allergy Verified 01/26/23 13:15 - Social History Does the pt smoke?: Yes Smoking Status: Current every day smoker Does the pt drink ETOH?: Yes Does the pt have substance abuse?: No - Immunizations Immunizations are current?: Yes - POLST Patient has POLST: No PD ED PE NORMAL - Vitals Vital signs reviewed: Yes - General General: Alert and oriented X 3, No acute distress, Well developed/nourished - Neck Neck: No bony TTP (not posteriorly. There is tenderness left lateral neck in SCM area, but some to lateral posterior tissue. Normal voice and swallow. No bruits. Not tender anteriorly per se. ) Results - Vitals Vitals: Vital Signs - 24 hr 01/26/23 13:09 Temperature 36.6 C Heart Rate 86 Respiratory 20 Rate Blood Pressure 160/91 H O2 Saturation 98 Oxygen O2 Source Room air - Rads (name of study) neck CT Relevant Findings:: Prelim report reviewed (no acute abnormalities. ), See rad report PD Medical Decision Making - ED course Complexity details: considered differential (seems soft tissue and muscular neck injury left lateral. No bony abnormal. No noted soft tissue swelling. I was not suspecting vascular injury so did not use contrast. ), d/w patient Departure - Departure Disposition: 01 Home, Self Care Clinical Impression: Fall from slip, trip, or stumble, Neck contusion Condition: Stable Record reviewed to determine appropriate education?: Yes Instructions: ED Sprain Strain Neck Prescriptions: methocarbamoL [Robaxin] 500 mg PO Q6H PRN #30 tablet PRN Reason: Spasms Comments: Your CT scan does not show any fractures of the neck bones nor any obvious localized problem in the soft tissue of the neck. It does seem likely to be bruising and strain of the muscles. No obvious injury of the other structures such as the airway or blood vessels etc. Tylenol every 4-6 hours if needed for pain. You could consider adding Robaxin muscle relaxant for stiffness and spasms. Otherwise I would anticipate this improving with gentle activity and range of motion and time. Forms: Activity restrictions Discharge Date/Time: 01/26/23 15:07
[2023-01-26 13:18] VITALS: BP 160/91
[2023-01-26] MEDS ORDERED: ACETAMINOPHEN 325 MG TABLET PO STA (14:05)
[2023-01-26] MEDS ORDERED: methocarbamoL 500 MG TABLET PO STA (14:05)
--- NOTE | 2023-01-26 14:41 | CT Report ---
PROCEDURE: SOFT TISSUE NECK WO INDICATIONS: fell, struck side of neck; left/posterior pain TECHNIQUE: Non-contrast 3.0 mm axial sections acquired from the sella to the aortic arch. Additiona l oblique axial 3.0 mm sections acquired through the pharynx. 3 mm thick coronal reformats were gene rated. For radiation dose reduction, the following was used: automated exposure control, adjustment of mA and/or kV according to patient size. COMPARISON: None. FINDINGS: Image quality: Excellent. Lymph nodes: No enlarged lymph nodes seen throughout the neck. Vessels: Non-opacified vessels appear normal in caliber. Neck spaces: The oropharynx, nasopharynx, and pharynx demonstrate no mucosal lesions. The vocal cor ds, false vocal cords, pyriform sinuses, epiglottis, vallecula, and tongue base all appear normal. E xtramucosal spaces appear unremarkable. Glands: The parotid and submandibular glands appear normal, without stones. The thyroid is normal i n size and there are no incidental findings. Miscellaneous: Visualized brain and orbits appear normal. Lung apices appear clear. Superficial so ft tissues appear normal. IMPRESSION: No acute abnormality. CLINICAL RECOMMENDATION STATEMENTS: In patients <35 years with an ITN detected on CT, MRI, or extrathyroidal ultrasound, the Committee re commends further evaluation with dedicated thyroid ultrasound if the nodule is "e1 cm and has no susp icious imaging features, and if the patient has normal life expectancy. In patients "e35 years with an ITN detected on CT, MRI, or extrathyroidal ultrasound, the Committee r ecommends further evaluation with dedicated thyroid ultrasound if the nodule is "e1.5 cm and has no s uspicious imaging features, and if the patient has normal life expectancy. (ACR, 2014) Reviewed by: Crow Swartz on 01/26/2023 2:40 PM PDT Approved by: Crow Swartz on 01/26/2023 2:40 PM PDT Station ID: [id number]
== END 2023-01-26 15:07 | disposition home or self-care (01) ==
LOC: ED 12:58
DX: S10.93XA Contusion of unspecified part of neck, initial encounter (principal); W01.10XA Fall on same level from slipping, tripping and stumbling with subsequent striking against unspecified object, initial encounter; Y93.E5 Activity, floor mopping and cleaning; Y99.0 Civilian activity done for income or pay; I10 Essential (primary) hypertension; F17.200 Nicotine dependence, unspecified, uncomplicated; Z79.899 Other long term (current) drug therapy
CPT/HCPCS: 70490; 99283; 99284; A9270

== ENCOUNTER 2023-03-13 08:00 | Outpatient (CLI) | payer MEDICAID | END 2023-03-13 23:59 | disposition home or self-care (01) | LOC: LAB.S 08:00 | PROVIDERS: ATTEND Physician Assistant Medical | DX: B99.9 Unspecified infectious disease (principal); B95.4 Other streptococcus as the cause of diseases classified elsewhere | CPT/HCPCS: 87070 ==

== ENCOUNTER 2023-03-13 14:24 | Outpatient (CLI) | payer MEDICAID ==
[2023-03-13 20:06] LABS: BASOPHILS % (AUTO) 0.4 %; EOSINOPHILS # (AUTO) 0.4 10^3/uL (0.0-0.7); EOSINOPHILS % (AUTO) 3.8 %; HCT - HEMATOCRIT 53.6 % (42.0-52.0); HGB - HEMOGLOBIN 17.1 g/dL (14.0-18.0); LYMPHOCYTES # (AUTO) 4.5 10^3/uL (1.5-3.5); LYMPHOCYTES % (AUTO) 45.3 %; MEAN CORPUSCULAR HEMOGLOBIN 30.9 pg (27.0-31.0); MEAN CORPUSCULAR HGB CONC 31.9 g/dL (32.0-36.0); MEAN CORPUSCULAR VOLUME 96.8 fL (80.0-94.0); MEAN PLATELET VOLUME 10.8 fL (7.4-11.4); MONOCYTES # (AUTO) 0.5 10^3/uL (0.0-1.0); MONOCYTES % (AUTO) 4.9 %; NEUTROPHILS # (AUTO) 4.6 10^3/uL (1.5-6.6); NEUTROPHILS % (AUTO) 45.4 %; PLT - PLATELET COUNT 293 10^3/uL (130-450); RED BLOOD COUNT 5.54 10^6/uL (4.70-6.10); RED CELL DISTRIBUTION WIDTH 14.4 % (12.0-15.0)
[2023-03-13 20:17] LABS: INFECTIOUS MONONUCLEOSIS NEGATIVE (Negative)
[2023-03-13 20:25] LABS: ALBUMIN 4.4 g/dL (3.2-5.5); ALBUMIN/GLOBULIN RATIO 1.3 (1.0-2.2); BILIRUBIN,TOTAL 0.6 mg/dL (0.2-1.0); CALCIUM 9.4 mg/dL (8.5-10.3); CREATININE 1.1 mg/dL (0.6-1.2); POTASSIUM 4.7 mmol/L (3.5-5.0); TOTAL PROTEIN 7.8 g/dL (6.7-8.2)
== END 2023-03-13 14:25 | disposition home or self-care (01) ==
LOC: LAB.S 14:24
PROVIDERS: ATTEND Physician Assistant Medical
DX: J02.9 Acute pharyngitis, unspecified (principal); Z12.5 Encounter for screening for malignant neoplasm of prostate; R53.83 Other fatigue; R53.81 Other malaise
CPT/HCPCS: 36415; 80053; 84153; 85025; 85651; 86308; 87070

== ENCOUNTER 2023-03-17 13:22 | Emergency (ER) | payer MEDICAID ==
[2023-03-17 14:09] LABS: RAPID STREP SCREEN Negative (Negative)
[2023-03-17 14:15] LABS: BASOPHILS % (AUTO) 0.3 %; EOSINOPHILS # (AUTO) 0.3 10^3/uL (0.0-0.7); EOSINOPHILS % (AUTO) 3.6 %; HCT - HEMATOCRIT 50.3 % (42.0-52.0); LYMPHOCYTES # (AUTO) 4.2 10^3/uL (1.5-3.5); MEAN CORPUSCULAR HEMOGLOBIN 31.8 pg (27.0-31.0); MEAN CORPUSCULAR HGB CONC 33.8 g/dL (32.0-36.0); MEAN PLATELET VOLUME 10.2 fL (7.4-11.4); MONOCYTES # (AUTO) 0.6 10^3/uL (0.0-1.0); NEUTROPHILS # (AUTO) 4.2 10^3/uL (1.5-6.6); PLT - PLATELET COUNT 247 10^3/uL (130-450); RED BLOOD COUNT 5.35 10^6/uL (4.70-6.10); WHITE BLOOD COUNT 9.4 x10^3/uL (4.8-10.8)
--- NOTE | 2023-03-17 14:28 | ED Physician Documentation ---
History of Present Illness - Stated complaint Stated Complaint: SORE THROAT - Chief complaint Chief Complaint: Heent - History obtained from History obtained from: Patient - History of Present Illness Pain level max: 0 Pain level now: 0 - Additonal information Additional information: 48-year-old male presents to the emergency department for sore throat for the past 2 weeks. Initially was positive for group G strep, has been on penicillin with no improvement. Monospot was negative. He states his laboratory testing at the [facility] clinic was normal. Worse with swallowing, nothing makes it better. No fevers. No chills. Has had some rhinorrhea and congestion. No vomiting. No abdominal pain. No rash. He states his only medical history is hypertension. Review of Systems Constitutional: denies: Fever, Chills Nose: reports: Rhinorrhea / runny nose, Congestion Respiratory: denies: Cough GI: denies: Nausea, Vomiting, Diarrhea Skin: denies: Rash Musculoskeletal: denies: Neck pain, Back pain Neurologic: denies: Headache PD PAST MEDICAL HISTORY - Past Medical History Cardiovascular: Hypertension Respiratory: None Endocrine/Autoimmune: None GI: Ulcers, Pancreatitis : None HEENT: None Psych: Depression, Anxiety, Panic attacks Musculoskeletal: Chronic back pain Derm: None - Past Surgical History Past Surgical History: Yes General: Appendectomy, Hiatal hernia repair - Present Medications Home Medications: Ambulatory Orders Medication Instructions Recorded Confirmed Lisinopril [Zestril] 10 mg PO DAILY #30 tablet 09/30/21 03/17/23 Omeprazole 40 mg PO DAILY #30 cap 11/25/22 03/17/23 Metoprolol Tartrate [Lopressor] 100 mg PO DAILY 03/17/23 03/17/23 Penicillin Vk 500 mg PO Q6H 03/17/23 03/17/23 - Allergies Allergies/Adverse Reactions: Allergies Allergy/AdvReac Type Severity Reaction Status Date / Time No Known Drug Allergies Allergy Verified 03/17/23 13:33 - Social History Does the pt smoke?: Yes Smoking Status: Current every day smoker Does the pt drink ETOH?: Yes Does the pt have substance abuse?: No - Immunizations Immunizations are current?: Yes - POLST Patient has POLST: No PD ED PE NORMAL - Vitals Vital signs reviewed: Yes - General General: Alert and oriented X 3, No acute distress, Well developed/nourished - HEENT HEENT: PERRL, Moist mucous membranes, Pharynx benign, Other (Normal phonation. No trismus) - Neck Neck: Supple, no meningeal sign, No adenopathy, No JVD, No bruit, Other (Tender to palpation along the right anterior aspect of the neck. No swelling.) - Cardiac Cardiac: RRR, Strong equal pulses - Respiratory Respiratory: No respiratory distress, Clear bilaterally - Abdomen Abdomen: Soft, Non tender, Non distended - Back Back: No spinal TTP - Derm Derm: Warm and dry, No rash - Extremities Extremities: No edema - Neuro Neuro: Alert and oriented X 3 - Psych Psych: Normal mood, Normal affect Results - Vitals Vitals: Vital Signs - 24 hr 03/17/23 03/17/23 13:30 16:44 Temperature 36.6 C 36.2 C L Heart Rate 68 100 Respiratory 15 18 Rate Blood Pressure 128/71 117/74 O2 Saturation 100 95 Oxygen O2 Source Room air - Labs Labs: Laboratory Tests 03/17/23 03/17/23 03/17/23 13:49 14:09 14:09 WBC 9.4 RBC 5.35 Hgb 17.0 Hct 50.3 MCV 94.0 MCH 31.8 H MCHC 33.8 RDW 14.0 Plt Count 247 MPV 10.2 Neut # (Auto) 4.2 Lymph # (Auto) 4.2 H [place] # (Auto) 0.6 Eos # (Auto) 0.3 Baso # (Auto) 0.0 Absolute Nucleated RBC 0.00 Nucleated RBC % 0.0 Sodium 136 Potassium 4.4 Chloride 103 Carbon Dioxide 31 Anion Gap 2.0 L BUN 18 Creatinine 1.2 Estimated GFR (MDRD) 64 L Glucose 80 Calcium 9.7 Total Bilirubin 0.5 AST 14 ALT 19 Alkaline Phosphatase 94 Total Protein 7.2 Albumin 4.4 Globulin 2.8 Albumin/Globulin Ratio 1.6 Lipase 32 Group A Strep Rapid Negative - Rads (name of study) CT soft tissue neck Relevant Findings:: Final report received, See rad report PD Medical Decision Making - ED course Complexity details: reviewed results, re-evaluated patient, considered differential, d/w patient ED course: No significant findings on laboratory testing or CT scan. No evidence of abscess, tumor. His strep test is negative. Recent Monospot is negative. Recent throat culture is negative. Unclear etiology of his throat pain. He is tolerating p.o. without difficulty here. We will have him follow-up with his PCP for further care. Patient is well-appearing, nontoxic. Afebrile. Normal phonation. No trismus. Patient counseled regarding signs and symptoms for which I believe and urgent re-evaluation would be necessary. Patient with good understanding of and agreement to plan and is comfortable going home at this time This document was made in part using voice recognition software. While efforts are made to proofread this document, sound alike and grammatical errors may occur. Patient was given a dose of dexamethasone IV for the pain/swelling he is feeling Departure - Departure Disposition: Home, Self Care Clinical Impression: Sore throat Condition: Good Instructions: ED Pharyngitis Viral Follow-Up: Scarlett Alegre ARNP [Primary Care Provider] - Within 1 week Comments: The cause of your symptoms is unclear. Please follow-up with your doctor for further care. There is no evidence of bacterial infection at this time. Your monotest is negative. Your testing today is normal. Your CT scan does not show any evidence of abscess or mass. You were given a dose of dexamethasone today. You can use Motrin or Tylenol at home. Forms: PCP List Discharge Date/Time: 03/17/23 16:53
[2023-03-17] MEDS ORDERED: iohexoL-300 100 ML VIAL ONE (14:33)
[2023-03-17 14:34] LABS: ALBUMIN 4.4 g/dL (3.2-5.5); ALBUMIN/GLOBULIN RATIO 1.6 (1.0-2.2); BILIRUBIN,TOTAL 0.5 mg/dL (0.2-1.0); CALCIUM 9.7 mg/dL (8.5-10.3); CREATININE 1.2 mg/dL (0.6-1.3); POTASSIUM 4.4 mmol/L (3.5-4.5); TOTAL PROTEIN 7.2 g/dL (6.4-8.9)
[2023-03-17] MEDS ORDERED: iohexoL-300 100 ML VIAL IVP ONE (15:08)
--- NOTE | 2023-03-17 15:32 | CT Report ---
PROCEDURE: SOFT TISSUE NECK W INDICATIONS: R sided neck/throat pain x 2 weeks CONTRAST: Omni 300 100ml TECHNIQUE: After the administration of intravenous contrast, 3.0 mm axial sections acquired from the sella to th e aortic arch. Additional oblique axial 3.0 mm sections acquired through the pharynx. 3 mm thick co yomaira reformats were generated. For radiation dose reduction, the following was used: automated exp osure control, adjustment of mA and/or kV according to patient size. COMPARISON: None. FINDINGS: Image quality: Excellent. Lymph nodes: No enlarged lymph nodes seen throughout the neck. Vessels: Visualized vasculature appears patent. Neck spaces: The oropharynx, nasopharynx, and pharynx demonstrate no mucosal lesions. The vocal cor ds, false vocal cords, pyriform sinuses, epiglottis, vallecula, and tongue base all appear normal. E xtramucosal spaces appear unremarkable. Glands: The parotid and submandibular glands appear normal. The thyroid is normal in size and there are no incidental findings. Miscellaneous: Visualized brain and orbits appear normal. Lung apices appear clear. Superficial so ft tissues appear normal. Bones: No suspicious bony lesions. Visualized sinuses and mastoids appear unremarkable. Mild strai ghtening of normal cervical lordosis likely related to positioning and/or concurrent muscle spasms. IMPRESSION: Negative CT evaluation of the neck soft tissues. No evidence for adenopathy, abnormal fluid collectio n, or abscess. Specifically, no focal abnormalities identified over the BB skin marker localizing are a of patient's pain. This is seen inferior to the angle of the right mandible and slightly inferior t o the distal margin of the right submandibular gland. CLINICAL RECOMMENDATION STATEMENTS: In patients <35 years with an ITN detected on CT, MRI, or extrathyroidal ultrasound, the Committee re commends further evaluation with dedicated thyroid ultrasound if the nodule is "e1 cm and has no susp icious imaging features, and if the patient has normal life expectancy. In patients "e35 years with an ITN detected on CT, MRI, or extrathyroidal ultrasound, the Committee r ecommends further evaluation with dedicated thyroid ultrasound if the nodule is "e1.5 cm and has no s uspicious imaging features, and if the patient has normal life expectancy. (ACR, 2014) Reviewed by: Gideon Avlies MD on 03/17/2023 2:30 PM AKDT Approved by: Gideon Aviles MD on 03/17/2023 2:30 PM [facility] Station ID: [id number]
[2023-03-17] MEDS ORDERED: DEXAMETHASONE 10 MG/ML VIAL IVP STA (16:43)
[2023-03-17 16:45] VITALS: BP 117/74
== END 2023-03-17 16:53 | disposition home or self-care (01) ==
LOC: ED 13:22
DX: J02.9 Acute pharyngitis, unspecified (principal); I10 Essential (primary) hypertension; F17.200 Nicotine dependence, unspecified, uncomplicated; Z79.899 Other long term (current) drug therapy
CPT/HCPCS: 36415; 70491; 80053; 83690; 85025; 87070; 87430; 96374; 99283; 99284; Q9967

== ENCOUNTER 2023-06-16 14:21 | Outpatient (CLI) | payer MEDICAID | END 2023-06-16 14:22 | disposition critical access hospital (66) | LOC: EMS 14:21 | DX: R07.89 Other chest pain (principal); R00.0 Tachycardia, unspecified | CPT/HCPCS: A0425; A0427; A0999 ==

== ENCOUNTER 2023-06-16 14:46 | Emergency (ER) | payer MEDICAID ==
[2023-06-16 15:08] VITALS: O2SAT 99
[2023-06-16 15:25] LABS: BASOPHILS % (AUTO) 0.3 %; EOSINOPHILS # (AUTO) 0.3 10^3/uL (0.0-0.7); EOSINOPHILS % (AUTO) 3.1 %; HCT - HEMATOCRIT 47.6 % (42.0-52.0); HGB - HEMOGLOBIN 15.9 g/dL (14.0-18.0); LYMPHOCYTES # (AUTO) 4.7 10^3/uL (1.5-3.5); LYMPHOCYTES % (AUTO) 45.5 %; MEAN CORPUSCULAR HGB CONC 33.4 g/dL (32.0-36.0); MEAN CORPUSCULAR VOLUME 95.8 fL (80.0-94.0); MEAN PLATELET VOLUME 10.2 fL (7.4-11.4); MONOCYTES # (AUTO) 0.8 10^3/uL (0.0-1.0); MONOCYTES % (AUTO) 7.7 %; NEUTROPHILS # (AUTO) 4.4 10^3/uL (1.5-6.6); NEUTROPHILS % (AUTO) 43.2 %; PLT - PLATELET COUNT 236 10^3/uL (130-450); RED BLOOD COUNT 4.97 10^6/uL (4.70-6.10); RED CELL DISTRIBUTION WIDTH 13.6 % (12.0-15.0); WHITE BLOOD COUNT 10.3 x10^3/uL (4.8-10.8)
[2023-06-16 15:46] LABS: ALBUMIN 4.2 g/dL (3.2-5.5); ALBUMIN/GLOBULIN RATIO 1.8 (1.0-2.2); BILIRUBIN,TOTAL 0.5 mg/dL (0.2-1.0); CALCIUM 9.4 mg/dL (8.5-10.3); CREATININE 1.1 mg/dL (0.6-1.3); POTASSIUM 4.1 mmol/L (3.5-4.5); TOTAL PROTEIN 6.5 g/dL (6.4-8.9); TROPONIN I HIGH SENSITIVITY 5.7 ng/L (2.3-19.7)
--- NOTE | 2023-06-16 15:49 | XRAY Report ---
PROCEDURE: Chest 1 View X-Ray INDICATIONS: Chest pain TECHNIQUE: One view of the chest was acquired. COMPARISON: 09/20/2022 FINDINGS: Surgical changes and devices: None. Lungs and pleura: No pleural effusions or pneumothorax. Lungs are clear. Mediastinum: Mediastinal contours appear normal. Heart size is normal. Bones and chest wall: No suspicious bony lesions. Overlying soft tissues appear unremarkable. IMPRESSION: No acute cardiopulmonary findings Reviewed by: Warren Jennings MD on 06/16/2023 2:48 PM AKDT Approved by: Warren Jennings MD on 06/16/2023 2:48 PM AKDT Station ID: [id number]
--- NOTE | 2023-06-16 16:04 | ED Physician Documentation ---
PD HPI CHEST PAIN - Stated complaint Stated Complaint: CP/SOA - Chief complaint Chief Complaint: Cardiac - History obtained from History obtained from: Patient - Additional information Additional information: 48-year-old male presents with generalized chest pain, shortness of breath, and fatigue. Symptoms started around 1230 this afternoon while patient was in an AA meeting. He states today the symptoms came on all of a sudden. He had no radiating chest pain, no exertional symptoms but had persistent generalized chest pain that is reproducible with palpation, companied by shortness of breath and fatigue. And no diaphoresis, no nausea or vomiting. He does feel short of breath denies any coughing wheezing, no lower extremity edema or swelling. No history of heart disease to his knowledge. He denies any anxiety, states he was not feeling stressed or anxious at the time of his symptom onset. Review of Systems Constitutional: reports: Fatigue. denies: Fever, Chills, Myalgias Eyes: reports: Reviewed and negative Ears: reports: Reviewed and negative Nose: reports: Reviewed and negative Throat: reports: Reviewed and negative Cardiac: reports: Chest pain / pressure. denies: Palpitations, Pedal edema, Calf pain Respiratory: reports: Dyspnea. denies: Cough, Hemoptysis, Wheezing GI: reports: Reviewed and negative : reports: Reviewed and negative Skin: reports: Reviewed and negative Musculoskeletal: reports: Reviewed and negative Neurologic: reports: Reviewed and negative PD PAST MEDICAL HISTORY - Past Medical History Past Medical History: Yes Cardiovascular: Hypertension Respiratory: None Endocrine/Autoimmune: None GI: Ulcers, Pancreatitis : None HEENT: None Psych: Depression, Anxiety, Panic attacks Musculoskeletal: Chronic back pain Derm: None - Past Surgical History Past Surgical History: Yes General: Appendectomy, Hiatal hernia repair - Present Medications Home Medications: Ambulatory Orders Medication Instructions Recorded Confirmed Lisinopril [Zestril] 10 mg PO DAILY #30 tablet 09/30/21 06/16/23 Omeprazole 40 mg PO DAILY #30 cap 11/25/22 06/16/23 Metoprolol Tartrate [Lopressor] 100 mg PO DAILY 03/17/23 06/16/23 - Allergies Allergies/Adverse Reactions: Allergies Allergy/AdvReac Type Severity Reaction Status Date / Time No Known Drug Allergies Allergy Verified 06/16/23 15:00 - Social History Does the pt smoke?: Yes Smoking Status: Current every day smoker Does the pt drink ETOH?: Yes Does the pt have substance abuse?: No - Immunizations Immunizations are current?: Yes - POLST Patient has POLST: No PD ED PE NORMAL - Vitals Vital signs reviewed: Yes - General General: Alert and oriented X 3, No acute distress, Well developed/nourished - HEENT HEENT: Atraumatic, Moist mucous membranes, Pharynx benign - Neck Neck: Supple, no meningeal sign, No JVD - Cardiac Cardiac: RRR, No murmur, No gallop, No rub, Other (Tender with palpation of the anterior chest wall bilaterally.) - Respiratory Respiratory: No respiratory distress, Clear bilaterally - Abdomen Abdomen: Normal bowel sounds, Soft, Non tender, Non distended - Derm Derm: Normal color, Warm and dry, No rash - Extremities Extremities: No deformity, No tenderness to palpate, Normal ROM s pain, No edema - Neuro Neuro: Alert and oriented X 3 Eye Opening: Spontaneous Motor: Obeys Commands Verbal: Oriented GCS Score: 15 - Psych Psych: Normal mood, Normal affect, Other Results - Vitals Vitals: Vital Signs - 24 hr 06/16/23 06/16/23 14:56 17:10 Temperature 36.8 C Heart Rate 101 H 77 Respiratory 20 16 Rate Blood Pressure 147/106 H 133/100 H O2 Saturation 99 99 Oxygen O2 Source Room air - EKG (time done) No standard instances EKG releavant findings:: EKG personally interpreted by author of this note. Relevant findings are: Rate: Rate (enter#) (97) Rhythm: Sinus tachycardia [place]: Normal Intervals: Normal PA QRS: LVH Computer interpretation: Agree with computer - Labs Labs: Laboratory Tests 06/16/23 06/16/23 06/16/23 15:16 15:16 16:32 WBC 10.3 RBC 4.97 Hgb 15.9 Hct 47.6 MCV 95.8 H MCH 32.0 H MCHC 33.4 RDW 13.6 Plt Count 236 MPV 10.2 Neut # (Auto) 4.4 Lymph # (Auto) 4.7 H [place] # (Auto) 0.8 Eos # (Auto) 0.3 Baso # (Auto) 0.0 Absolute Nucleated RBC 0.00 Nucleated RBC % 0.0 Sodium 137 Potassium 4.1 Chloride 104 Carbon Dioxide 27 Anion Gap 6.0 BUN 13 Creatinine 1.1 Estimated GFR (MDRD) 71 L Glucose 69 L Calcium 9.4 Total Bilirubin 0.5 AST 13 ALT 12 Alkaline Phosphatase 92 Troponin I High Sens 5.7 5.2 Total Protein 6.5 Albumin 4.2 Globulin 2.3 Albumin/Globulin Ratio 1.8 Lipase 38 - Rads (name of study) No standard instances Relevant Findings:: Final report received PD Medical Decision Making - ED course Complexity details: reviewed results, re-evaluated patient, considered differential, d/w patient ED course: 48-year-old male presented with generalized chest pain as described. Symptoms started about 1230 today. Symptoms are atypical, reproducible with palpation however ACS did remain in the differential, we also do considered pneumonia, gastritis, pancreatitis given his prior history. We obtained labs which are generally reassuring, is negative troponin x2, CBC and CMP are stable. His EKG shows no acute ischemic changes, and his chest x-ray is negative. I suspect his symptoms are related to his chronic gastritis, there may also be an anxiety component. I do not Suspected ACS given his reassuring physical exam at this time, no signs of pneumonia or pneumothorax and low suspicion for PE or dissection given his physical exam and history. I did discuss return precautions if new or worsening symptoms. Departure - Departure Disposition: 01 Home, Self Care Clinical Impression: Atypical chest pain Gastritis Qualifiers: Gastritis type: alcoholic Chronicity: chronic Gastritis bleeding: without bleeding Qualified Code(s): K29.20 - Alcoholic gastritis without bleeding Condition: Good Instructions: ED Chest Pain NonCardiac Comments: Andrea, your workup today was stable. Your heart labs are reassuring and your chest xray Was negative. Your vital signs are stable. I suspect her symptoms are possibly due to your prior gastritis as this can cause chest symptoms, but it does not appear to be due to your heart at this time. I would like you to follow-up with your primary doctor and cardiology in the next 1 to 2 weeks. Return if you have new or worsening symptoms. Forms: PCP List Discharge Date/Time: 06/16/23 17:40
[2023-06-16 17:18] VITALS: BP 133/100
== END 2023-06-16 17:40 | disposition home or self-care (01) ==
LOC: EDUNIT# → ED 14:46
DX: R07.89 Other chest pain (principal); K29.20 Alcoholic gastritis without bleeding; F17.200 Nicotine dependence, unspecified, uncomplicated; I10 Essential (primary) hypertension; Z79.899 Other long term (current) drug therapy
CPT/HCPCS: 36415; 80053; 83690; 84484; 85025; 93005; 99283; 99284

== ENCOUNTER 2024-04-05 19:07 | Emergency (ER) | payer BC, MEDICAID ==
[2024-04-05 19:56] LABS: BILIRUBIN,URINE NEGATIVE (NEGATIVE); GLUCOSE, URINE (UA) NEGATIVE (NEGATIVE); KETONES,URINE (UA) NEGATIVE (NEGATIVE); LEUKOCYTE ESTERASE, URINE NEGATIVE (NEGATIVE); NITRITE,URINE NEGATIVE (NEGATIVE); OCCULT BLOOD,URINE NEGATIVE (NEGATIVE); PROTEIN,URINE NEGATIVE (NEGATIVE); UROBILINOGEN,URINE 0.2 (NORMAL) E.U./dL (NORMAL)
[2024-04-05 19:58] LABS: CLARITY,URINE CLEAR (CLEAR)
[2024-04-05 20:06] VITALS: O2SAT 99
[2024-04-05 20:24] LABS: BASOPHILS % (AUTO) 0.4 %; EOSINOPHILS % (AUTO) 5.3 %; HCT - HEMATOCRIT 48.4 % (42.0-52.0); HGB - HEMOGLOBIN 16.2 g/dL (14.0-18.0); LYMPHOCYTES % (AUTO) 47.8 %; MEAN CORPUSCULAR HEMOGLOBIN 32.5 pg (27.0-31.0); MEAN CORPUSCULAR HGB CONC 33.5 g/dL (32.0-36.0); MEAN CORPUSCULAR VOLUME 97.2 fL (80.0-94.0); MEAN PLATELET VOLUME 9.8 fL (7.4-11.4); MONOCYTES % (AUTO) 5.5 %; NEUTROPHILS % (AUTO) 40.7 %; PLT - PLATELET COUNT 219 10^3/uL (130-450); RED BLOOD COUNT 4.98 10^6/uL (4.70-6.10); RED CELL DISTRIBUTION WIDTH 13.2 % (12.0-15.0)
[2024-04-05 20:27] LABS: BAND NEUTROPHILS % (MANUAL) 0 %
[2024-04-05 20:39] LABS: ALBUMIN 4.3 g/dL (3.2-5.5); ALBUMIN/GLOBULIN RATIO 1.8 (1.0-2.2); BILIRUBIN,TOTAL 0.5 mg/dL (0.2-1.0); CALCIUM 9.6 mg/dL (8.5-10.3); TOTAL PROTEIN 6.7 g/dL (6.4-8.9)
[2024-04-05 21:00] LABS: ABNORMAL LYMPHS % (MANUAL) 4 %; EOSINOPHILS # (MANUAL) 0.5 10^3/uL (0-0.7); LYMPHOCYTES # (MANUAL) 5.8 10^3/uL (1.5-3.5); LYMPHOCYTES % (MANUAL) 44 %; MONOCYTES # (MANUAL) 0.8 10^3/uL (0.0-1.0); NEUTROPHILS # (MANUAL) 4.9 10^3/uL (1.5-6.6)
[2024-04-05 21:01] LABS: DIFFERENTIAL COMMENT MANUAL DIFFERENTIAL; PLATELET ESTIMATE, MANUAL NORMAL (130-450,000) (NORMAL); PLATELET MORPHOLOGY NORMAL APPEARANCE (NORMAL); RBC MORPHOLOGY (MULTIPLE) NORMAL APPEARANCE (NORMAL); WBC MORPHOLOGY (MULTIPLE) 1+ SMUDGE CELLS (NORMAL)
--- NOTE | 2024-04-05 21:40 | CT Report ---
PROCEDURE: Abdomen/Pelvis WO INDICATIONS: LLQ ABD PAIN TECHNIQUE: A CT scan of the abdomen and pelvis was performed without the use of intravenous contrast. Images we re recorded and evaluated at appropriate window settings. Reformats: coronal and sagittal. For radiat ion dose reduction, the following was used: automated exposure control, adjustment of mA and/or kV ac cording to patient size. COMPARISON: CT abdomen/pelvis with contrast 11/25/2022. FINDINGS: Image quality: Diagnostic. Lower chest: Unremarkable. Prior scarring medial right lung base. Liver: No contour-deforming mass. Gallbladder: The gallbladder is partially contracted. Biliary tree: No intrahepatic or extrahepatic dilation, accounting for age. Spleen: No splenomegaly. Pancreas: No pancreatic ductal dilation. Adrenals: No adrenal nodule. Bilateral adrenal calcifications are again noted. Kidneys and ureters: No hydronephrosis. No contour-deforming mass. Stomach, bowel and peritoneum: No gastric or small bowel dilation. No abnormal wall thickening. No pa thologic free fluid. Lymph nodes: No central or retroperitoneal adenopathy. Vessels: No infrarenal aortic aneurysm. Reproductive organs: Unremarkable. Bladder: Bladder wall thickness is normal, accounting for underdistention. No calcified bladder stone s. Pelvic lymph nodes: No adenopathy by size criteria. Bones: No aggressive osseous abnormality. Other: No significant ventral or inguinal hernia. Several scattered pelvic phleboliths, small arteria l vascular calcifications are noted within the aorta and the iliac arteries but no aneurysm or high-g rade stenosis is suspected. IMPRESSION: No hydronephrosis or obstructing renal stone. A definite source of current symptoms is not found. No inflammation within the retroperitoneum is seen. Chronic bilateral adrenal calcifications again no francia. Mild lung scarring medial right lung base posteriorly. This was previously present. Reviewed by: Reggie Joseph MD on 04/05/2024 9:39 PM PDT Approved by: Reggie Joseph MD on 04/05/2024 9:39 PM PDT Station ID: [id number]
--- NOTE | 2024-04-05 21:47 | ED Physician Documentation ---
PD HPI ABD PAIN - Stated complaint Stated Complaint: ABD PX - Chief complaint Chief Complaint: Abd Pain - History obtained from History obtained from: Patient - Additional information Additional information: 49-year-old male presents with several hours of left lower quadrant abdominal pain. Reports associated burning with urination. States that this is never happened before. He has had a hernia requiring repair in the past and he is concerned that something similar may be going on.Reports associated chills at home, did not take a temperature at home prior to presentation. Review of Systems Constitutional: reports: Chills. denies: Fever, Myalgias GI: reports: Abdominal Pain. denies: Nausea, Vomiting, Constipation, Diarrhea : reports: Dysuria. denies: Frequency, Hesitancy, Unable to Void Musculoskeletal: denies: Neck pain, Back pain, Extremity pain Neurologic: denies: Generalized weakness, Focal weakness, Numbness, Difficulty speaking PD PAST MEDICAL HISTORY - Past Medical History Past Medical History: Yes Cardiovascular: Hypertension Respiratory: None Endocrine/Autoimmune: None GI: Ulcers, Pancreatitis : None HEENT: None Psych: Depression, Anxiety, Panic attacks Musculoskeletal: Chronic back pain Derm: None - Past Surgical History Past Surgical History: Yes General: Appendectomy, Hiatal hernia repair - Present Medications Home Medications: Ambulatory Orders Medication Instructions Recorded Confirmed Lisinopril [Zestril] 10 mg PO DAILY #30 tablet 09/30/21 04/05/24 Omeprazole 40 mg PO DAILY #30 cap 11/25/22 04/05/24 Metoprolol Tartrate [Lopressor] 100 mg PO DAILY 03/17/23 04/05/24 - Allergies Allergies/Adverse Reactions: Allergies Allergy/AdvReac Type Severity Reaction Status Date / Time No Known Drug Allergies Allergy Verified 04/05/24 19:45 - Social History Does the pt smoke?: Yes Smoking Status: Current every day smoker Does the pt drink ETOH?: Yes Does the pt have substance abuse?: No - Immunizations Immunizations are current?: Yes - POLST Patient has POLST: No PD ED PE NORMAL - Vitals Vital signs reviewed: Yes - General General: Alert and oriented X 3, No acute distress, Well developed/nourished - Cardiac Cardiac: RRR, Strong equal pulses - Respiratory Respiratory: No respiratory distress, Clear bilaterally - Abdomen Abdomen: Soft, Non distended, Other (LLQ tenderness to deep palpation without rebound or guarding) - Male Male : [employer] present, Other (penis normal, testicles normal, cremasteric reflex present bilaterally) - Derm Derm: Normal color, Warm and dry, No rash - Neuro Neuro: Alert and oriented X 3, ocean import representative 2-12 intact, No motor deficit, Normal speech Results - Vitals Vitals: Vital Signs - 24 hr 04/05/24 04/05/24 04/05/24 19:41 20:38 22:00 Temperature 36.4 C L Heart Rate 88 88 82 Respiratory 16 16 Rate Blood Pressure 161/111 H 155/90 H O2 Saturation 99 99 Oxygen O2 Source Room air - Labs Labs: Laboratory Tests 04/05/24 04/05/24 04/05/24 19:50 20:17 20:17 WBC 12.0 H RBC 4.98 Hgb 16.2 Hct 48.4 MCV 97.2 H MCH 32.5 H MCHC 33.5 RDW 13.2 Plt Count 219 MPV 9.8 Neut # (Auto) Not Reportable Lymph # (Auto) Not Reportable [place] # (Auto) Not Reportable Eos # (Auto) Not Reportable Baso # (Auto) Not Reportable Absolute Nucleated RBC Not Reportable Total Counted 100 Band Neuts % (Manual) 0 Abnorm Lymph % (Manual) 4 Nucleated RBC % Not Reportable Neutrophils # (Manual) 4.9 Lymphocytes # (Manual) 5.8 H Monocytes # (Manual) 0.8 Eosinophils # (Manual) 0.5 Basophils # (Manual) 0.0 Differential Comment MANUAL DIFFERENTIAL WBC Morphology 1+ SMUDGE CELLS Platelet Estimate NORMAL (130-450,000) Platelet Morphology NORMAL APPEARANCE RBC Morph Micro Appear NORMAL APPEARANCE Sodium 138 Potassium 4.0 Chloride 102 Carbon Dioxide 31 Anion Gap 5.0 L BUN 13 Creatinine 1.0 Estimated GFR (MDRD) 79 L Glucose 90 Calcium 9.6 Total Bilirubin 0.5 AST 17 ALT 17 Alkaline Phosphatase 69 Total Protein 6.7 Albumin 4.3 Globulin 2.4 Albumin/Globulin Ratio 1.8 Lipase 20 Urine Color YELLOW Urine Clarity CLEAR Urine pH 6.0 Ur Specific [place] 1.025 Urine Protein NEGATIVE Urine Glucose (UA) NEGATIVE Urine Ketones NEGATIVE Urine Occult Blood NEGATIVE Urine Nitrite NEGATIVE Urine Bilirubin NEGATIVE Urine Urobilinogen 0.2 (NORMAL) Ur Leukocyte Esterase NEGATIVE Ur Microscopic Review NOT INDICATED Urine Culture Comments NOT INDICATED PD Medical Decision Making - ED course Complexity details: reviewed old records, reviewed results, re-evaluated patient, considered differential, d/w patient ED course: Several hours of left lower quadrant abdominal pain. On exam patient also has bilateral testicular pain, however he did not endorse this to triage nurse. He has cremasteric reflex present bilaterally, no penile discharge. Ultrasound not present in the facility at this time. Laboratory work and CT imaging ordered. Laboratory work reviewed, no significant abnormalities identified. Kidney function within normal limits, electrolytes normal. CT of the abdomen and pelvis reviewed, there appear to be chronic calcifications and scarring present, however these have been seen on previous imaging studies in the past. No kidney stone, hernia, other abnormality to explain patient's symptoms. Patient reassessed, comfortable in bed. Patient counseled on lab and imaging findings, no explanation for patient's symptoms at this time based on available labs and imaging. ED return precautions discussed Departure - Departure Disposition: 01 Home, Self Care Clinical Impression: Abdominal pain Condition: Stable Instructions: Abdominal Pain Comments: Your laboratory work and CT imaging today were normal. I do not have an obvious cause of your left lower quadrant pain, but it does not appear to be a hernia, diverticulitis, infection, or obstruction. Take Tylenol and ibuprofen as needed for symptoms. Follow-up with a primary care doctor if you continue to experience symptoms. Forms: PCP List Discharge Date/Time: 04/05/24 22:04
[2024-04-05 22:09] VITALS: BP 155/90
== END 2024-04-05 22:04 | disposition home or self-care (01) ==
LOC: ED 19:07
DX: R10.32 Left lower quadrant pain (principal); N50.812 Left testicular pain; N50.811 Right testicular pain
CPT/HCPCS: 36415; 80053; 81001; 81003; 83690; 85025; 87086; 99283; 99284

== ENCOUNTER 2024-04-07 12:13 | Emergency (ER) | payer BC ==
[2024-04-07 12:48] VITALS: O2SAT 100
[2024-04-07 14:21] LABS: BILIRUBIN,URINE NEGATIVE (NEGATIVE); GLUCOSE, URINE (UA) NEGATIVE (NEGATIVE); KETONES,URINE (UA) NEGATIVE (NEGATIVE); LEUKOCYTE ESTERASE, URINE NEGATIVE (NEGATIVE); NITRITE,URINE NEGATIVE (NEGATIVE); OCCULT BLOOD,URINE NEGATIVE (NEGATIVE); PROTEIN,URINE NEGATIVE (NEGATIVE); UROBILINOGEN,URINE 0.2 (NORMAL) E.U./dL (NORMAL)
[2024-04-07 14:23] LABS: CLARITY,URINE CLEAR (CLEAR)
--- NOTE | 2024-04-07 14:55 | ED Physician Documentation ---
History of Present Illness - Stated complaint Stated Complaint: - Chief complaint Chief Complaint: General - Additonal information Additional information: 49-year-old male with history of hypertension, right inguinal hernia requiring surgery, pancreatitis, depression, anxiety, panic attacks, appendectomy presents emergency department for right testicle/right groin pain. Patient was seen here couple days for abdominal pain and CT scan was found to be unremarkable as well as unremarkable labs. Patient says that he went home and attempted to rest and has had worsening right groin pain since then. No fevers or chills no nausea vomiting diarrhea no constipation.No new sexual partners. PD PAST MEDICAL HISTORY - Past Medical History Cardiovascular: Hypertension Respiratory: None Neuro: None Endocrine/Autoimmune: None GI: Ulcers, Pancreatitis : None HEENT: None Psych: Depression, Anxiety, Panic attacks Musculoskeletal: Chronic back pain Derm: None - Past Surgical History Past Surgical History: Yes General: Appendectomy, Hiatal hernia repair - Present Medications Home Medications: Ambulatory Orders Medication Instructions Recorded Confirmed Lisinopril [Zestril] 10 mg PO DAILY #30 tablet 09/30/21 04/05/24 Omeprazole 40 mg PO DAILY #30 cap 11/25/22 04/05/24 Metoprolol Tartrate [Lopressor] 100 mg PO DAILY 03/17/23 04/05/24 Meloxicam [Mobic] 7.5 mg PO BID PRN #20 tablet 04/07/24 - Allergies Allergies/Adverse Reactions: Allergies Allergy/AdvReac Type Severity Reaction Status Date / Time No Known Drug Allergies Allergy Verified 04/07/24 12:44 - Social History Does the pt smoke?: Yes Smoking Status: Current every day smoker Does the pt drink ETOH?: No Does the pt have substance abuse?: No - Immunizations Immunizations are current?: Yes - POLST Patient has POLST: No PD ED PE NORMAL - Vitals Vital signs reviewed: Yes - General General: Alert and oriented X 3, No acute distress, Well developed/nourished - Cardiac Cardiac: RRR - Respiratory Respiratory: No respiratory distress, Clear bilaterally - Abdomen Abdomen: Normal bowel sounds, Other (RLQ tenderness, right groin tenderness, no swelling or bulging) - Back Back: No CVA TTP - Derm Derm: Normal color, Warm and dry, No rash Results - Vitals Vitals: Oxygen O2 Source Room air - Labs Labs: Laboratory Tests 04/07/24 14:14 Urine Color YELLOW Urine Clarity CLEAR Urine pH 6.0 Ur Specific [place] 1.015 Urine Protein NEGATIVE Urine Glucose (UA) NEGATIVE Urine Ketones NEGATIVE Urine Occult Blood NEGATIVE Urine Nitrite NEGATIVE Urine Bilirubin NEGATIVE Urine Urobilinogen 0.2 (NORMAL) Ur Leukocyte Esterase NEGATIVE Ur Microscopic Review NOT INDICATED Urine Culture Comments NOT INDICATED - Rads (name of study) Limited abdominal ultrasound Relevant Findings:: Final report received, EMP independent interpretation of test, Other (No recurrent hernia) Testicular with Doppler ultrasound Relevant Findings:: Final report received, EMP independent interpretation of test, Other (Negative for testicular torsion no intratesticular masses seen trace left-sided hydrocele) PD Medical Decision Making - ED course ED course: 49-year-old male presents emergency department for right testicular pain. Testicular ultrasound was complete and ruled out torsion epididymitis or any other acute findings. Urinalysis was also complete and negative for any leukocytes or nitrites making me less suspicious or concern for possible UTI. You to CT scan a couple days ago I reevaluated and appears to be within normal limits and patient has already had an appendectomy. We went ahead and did a limited abdominal ultrasound to further evaluate the right groin region to see if there is a possible worsening or recurrent right inguinal hernia. Report given to Dr. Cowan to go over these results with the patient and plan for discharge versus admission versus further evaluation. Departure - Departure Disposition: 01 Home, Self Care Clinical Impression: Right groin pain Condition: Good Instructions: ED Strain Groin Follow-Up: your,doctor within 3-5 days [Other] Prescriptions: Meloxicam [Mobic] 7.5 mg PO BID PRN #20 tablet PRN Reason: Pain Comments: Your CT scan from 2 days ago as well as your ultrasounds today do not show any acute abnormalities. We have sent your prescription to [facility] in [place]. It is recommended you have a repeat evaluation either with your doctor or the walk-in clinic in approximately 3 to 5 days. Please return if you worsen. Forms: PCP List Discharge Date/Time: 04/07/24 17:16
--- NOTE | 2024-04-07 15:11 | Ultrasound Report ---
PROCEDURE: Testicle w/Doppler INDICATIONS: right testicular pain TECHNIQUE: Real-time scanning was performed of the scrotum and testicles, with image documentation. Color and p ulse Doppler interrogation was performed of both testicles. COMPARISON: 10/07/2019 FINDINGS: Right: Testicle is normal in size at 3.8 x 2 x 2.9 cm, and homogenous in echotexture. Epididymis is normal in overall size and morphology. No hydrocele. No varicoceles. Overlying scrotal skin is nor mal in thickness. Left: Testicle is normal in size at 3.9 x 2.4 x 2.9 cm, and homogeneous in echotexture. Epididymis is normal in overall size and morphology. . Demonstrates a trace hydrocele, with effacement of fluid seen posterior to the testicle itself No varicoceles. Overlying scrotal skin is normal in thickness. Doppler: Color and pulse Doppler demonstrate normal and symmetric arterial flow in both testicles. IMPRESSION: Negative for testicular torsion. No intratesticular masses are seen. There is a trace left-sided hydrocele. Note: Concordant preliminary findings given by the sales operations director upon the completion of the examination to Lane Gray at 2:00 PM on 04/07/2024. Reviewed by: Walter Maria MD on 04/07/2024 2:10 PM CECILIA Approved by: Walter Maria MD on 04/07/2024 2:10 PM CECILIA Station ID: [id number]
[2024-04-07] MEDS: ACETAMINOPHEN 500 MG TABLET PO STA (15:58)
[2024-04-07] MEDS: KETOROLAC 30 MG/ML VIAL IM STA (15:59)
[2024-04-07 16:27] VITALS: BP 140/88
--- NOTE | 2024-04-07 16:54 | Ultrasound Report ---
PROCEDURE: Abdomen Limited INDICATIONS: right groin swelling and pain TECHNIQUE: Real-time focused scanning was performed of the abdomen, with image documentation. Color Doppler ult rasound was also utilized. COMPARISONS: Correlation is made with CT, 04/05/2024. FINDINGS: Scanning is performed at the area of clinical concern. Within the right groin, no recurrent hernia can be seen. Apparent hernia repair mesh can be seen. IMPRESSION: No recurrent hernia can be seen. Reviewed by: Walter Maria MD on 04/07/2024 3:52 PM [email or web address] Approved by: Walter Maria MD on 04/07/2024 3:52 PM CECILIA Station ID: [id number]
--- NOTE | 2024-04-07 17:11 | ED Physician Documentation ---
ED Addendum - Addendum Addendum: 04/07/24 17:09 Patient is still having right inguinal pain, there is no palpable hernia. Ultrasound is negative. Reviewed his prior imaging as well. Unclear etiology, likely musculoskeletal. No urinary symptoms. I did reevaluate the patient, he is tender near the pelvic brim near the hip flexor. The pain is worse with movement of the leg and worse with walking. Possible groin strain? No redness. No swelling. No drainage. Neurovascularly intact. No evidence of DVT. I did review his visit from 2 days ago as well including the CT scan, no acute findings there either. We will trial on anti-inflammatories and see how he progresses at home. He will return if he worsens. Patient has not been taking anything for pain over the past 2 days. Patient counseled regarding signs and symptoms for which I believe and urgent re-evaluation would be necessary. Patient with good understanding of and agreement to plan and is comfortable going home at this time This document was made in part using voice recognition software. While efforts are made to proofread this document, sound alike and grammatical errors may occur. Departure - Departure Disposition: 01 Home, Self Care Clinical Impression: Right groin pain Condition: Good Instructions: ED Strain Groin Follow-Up: your,doctor within 3-5 days [Other] Prescriptions: Meloxicam [Mobic] 7.5 mg PO BID PRN #20 tablet PRN Reason: Pain Comments: Your CT scan from 2 days ago as well as your ultrasounds today do not show any acute abnormalities. We have sent your prescription to [facility] in [place]. It is recommended you have a repeat evaluation either with your doctor or the walk-in clinic in approximately 3 to 5 days. Please return if you worsen. Forms: PCP List Discharge Date/Time: 04/07/24 17:16
[2024-04-07] MEDS: MELOXICAM 7.5 MG TABLET PO STA (17:13)
== END 2024-04-07 17:16 | disposition home or self-care (01) ==
LOC: ED 12:13
DX: R10.31 Right lower quadrant pain (principal); F17.200 Nicotine dependence, unspecified, uncomplicated
CPT/HCPCS: 76705; 76870; 81003; 93975; 96372; 99284; A9270; 81001; 87086

== ENCOUNTER 2024-04-09 08:00 | Outpatient (CLI) | payer BC | END 2024-04-09 23:59 | disposition home or self-care (01) | LOC: LAB.S 08:00 | PROVIDERS: ATTEND Registered Nurse | DX: R30.0 Dysuria (principal); R11.0 Nausea; R10.31 Right lower quadrant pain | CPT/HCPCS: 87086 ==

== ENCOUNTER 2024-04-23 09:15 | Outpatient (CLI) | payer BC ==
[2024-04-23 09:41] LABS: BASOPHILS % (AUTO) 0.3 %; EOSINOPHILS # (AUTO) 0.6 10^3/uL (0.0-0.7); EOSINOPHILS % (AUTO) 4.7 %; HCT - HEMATOCRIT 52.4 % (42.0-52.0); HGB - HEMOGLOBIN 17.3 g/dL (14.0-18.0); LYMPHOCYTES # (AUTO) 4.3 10^3/uL (1.5-3.5); LYMPHOCYTES % (AUTO) 35.6 %; MEAN CORPUSCULAR HEMOGLOBIN 32.2 pg (27.0-31.0); MEAN CORPUSCULAR VOLUME 97.4 fL (80.0-94.0); MEAN PLATELET VOLUME 10.3 fL (7.4-11.4); MONOCYTES # (AUTO) 0.8 10^3/uL (0.0-1.0); MONOCYTES % (AUTO) 6.2 %; NEUTROPHILS # (AUTO) 6.4 10^3/uL (1.5-6.6); PLT - PLATELET COUNT 236 10^3/uL (130-450); RED BLOOD COUNT 5.38 10^6/uL (4.70-6.10); WHITE BLOOD COUNT 12.1 x10^3/uL (4.8-10.8)
[2024-04-23 09:55] LABS: CHOL/HDL RATIO 4.4 (<5.0); CHOLESTEROL 181 mg/dL; HDL CHOLESTEROL 41 mg/dL; LDL CHOLESTEROL,CALCULATED 107 mg/dL; LDL/HDL RATIO 2.6 (<3.6); TRIGLYCERIDES 164 mg/dL; VLDL CHOLESTEROL 33 mg/dL
[2024-04-23 10:07] LABS: ALBUMIN 4.2 g/dL (3.2-5.5); ALBUMIN/GLOBULIN RATIO 1.7 (1.0-2.2); ALKALINE PHOSPHATASE 70 IU/L (42-121); ALT ALANINE AMINOTRANSFERASE 15 IU/L (10-60); AST ASPARTATE AMINOTRANSFERASE 13 IU/L (10-42); BILIRUBIN,TOTAL 0.5 mg/dL (0.2-1.0); BUN - BLOOD UREA NITROGEN 16 mg/dL (6-20); CALCIUM 9.5 mg/dL (8.5-10.3); CARBON DIOXIDE - CO2 31 mmol/L (21-32); CHLORIDE 104 mmol/L (101-111); CREATININE 0.9 mg/dL (0.6-1.3); GFR - MDRD 89 (>89); GLUCOSE 71 mg/dL (74-104); SODIUM 139 mmol/L (135-145); TOTAL PROTEIN 6.7 g/dL (6.4-8.9)
[2024-04-23 13:42] LABS: CHLAMYDIA TRACHOMATIS DNA NEGATIVE (NEGATIVE); NEISSERIA GONORRHOEAE DNA NEGATIVE (NEGATIVE); TRICHOMONAS VAGINALIS DNA NEGATIVE (NEGATIVE)
== END 2024-04-23 09:16 | disposition home or self-care (01) ==
LOC: LAB 09:15
PROVIDERS: ATTEND Registered Nurse
DX: R30.0 Dysuria (principal); R11.0 Nausea; R10.31 Right lower quadrant pain; Z79.899 Other long term (current) drug therapy; Z13.220 Encounter for screening for lipoid disorders; Z12.5 Encounter for screening for malignant neoplasm of prostate
CPT/HCPCS: 36415; 80053; 80061; 83721; 84153; 85025; 87491; 87591; 87661